=== PATIENT | male | born 1945 | race Caucasian/White ===

== ENCOUNTER 2020-11-06 23:00 | Emergency (ER) | payer MEDICARE, SELFPAY ==
[2020-11-06 23:04] VITALS: BP 149/72; PULSE 77; RESP 16; TEMP 36.2; O2SAT 100
--- NOTE | 2020-11-06 23:17 | ED.GENADULT ---
HPI - General Adult General Chief complaint: Unspecified Stated complaint: arm soreness at injection site Time Seen by Provider: 11/06/20 23:08 Source: patient Mode of arrival: ambulatory Limitations: no limitations History of Present Illness HPI narrative: Patient complaining of tenderness, itching and mild swelling of his right deltoid muscle after receiving pneumonia 23 shot earlier today. No significant redness. Denies any facial, lip, tongue or throat swelling. Denies any shortness of breath. Denies any fever or chills. Related Data Home Medications Medication Instructions Recorded Confirmed amlodipine 10 mg tablet 10 mg PO DAILY 06/10/19 aspirin 81 mg tablet,delayed 81 mg PO DAILY 06/10/19 release cholecalciferol (vitamin D3) 125 5,000 unit PO DAILY 06/10/19 mcg (5,000 unit) capsule meloxicam 7.5 mg tablet 7.5 mg PO DAILY 06/10/19 multivitamin 1 tablet PO DAILY 06/10/19 omeprazole 20 mg capsule,delayed 20 mg PO DAILY 06/10/19 release tamsulosin 0.4 mg capsule 0.4 mg PO DAILY 06/10/19 terazosin 10 mg capsule 10 mg PO DAILY 06/10/19 vitamin E (dl, acetate) 450 mg 1,000 unit PO DAILY 06/10/19 (1,000 unit) capsule oxybutynin chloride 5 mg tablet 5 mg PO DAILY tablet 12/16/19 rosuvastatin 10 mg tablet 10 mg PO DAILY 12/16/19 diphenhydramine HCl 50 mg capsule 50 mg PO .QHS PRN cap 06/20/20 Allergies Allergy/AdvReac Type Severity Reaction Status Date / Time celecoxib Allergy Unknown stomach Verified 06/20/20 07:58 cramping lisinopril Allergy Unknown eyes Verified 06/20/20 07:58 swelling & rash Review of Systems Review of Systems: All systems reviewed & are unremarkable except as noted in HPI and below PMFSH Past Medical History Medical History History of amputation of left great toe Family History Family History Father Carcinoma of colon Patient's father is , Onset Age: 57 Mother Hypertension Social History Social History Smoking packs per day: 2 Smoking cigarettes per day: 40.0 Years smoked: 50 Smoking pack-years: 100.00 Smoking status: Former smoker Tobacco type: cigarettes Second hand tobacco smoke exposure: No Smoking end date: 08/03/09 Alcohol intake: current Drinks per week: 6 Substance use: never Substance use type: does not use Gender identity (if verbalized by the patient): Male Exam Const: General: cooperative, healthy appearing, comfortable, no acute distress, well developed, alert and awake; No confusion Orientation/consciousness: oriented to person, oriented to place, oriented to time, patient oriented x3 and No confusion Limitations: no limitations HENMT: Head: normal to inspection, normocephalic and atraumatic Ears: hearing grossly normal bilaterally, TM normal on the right and TM normal on the left General nose exam: Normal external nose present, Normal nares present and No nasal discharge present Face and sinus: normal facial exam Mouth: Yes Normal oral and palatal mucosa present, Yes lip normal, Yes tongue normal and Yes oropharynx normal Throat: posterior oropharynx normal, tonsils normal and uvula midline Eyes: General: appearance normal, both eyes and all related structures Pupils: Equal, round and reactive pupils present EOM: EOMs intact bilaterally Neck: Neck: normal visual inspection, full ROM, no lymphadenopathy and no meningeal signs Chest: Chest palpation & inspection: normal inspection of the chest Resp: Effort & Inspection: normal respiratory effort, able to speak in complete sentences, no respiratory distress and not tachypneic Auscultation: clear to auscultation bilaterally, no crackles, no rales, no rhonchi and no wheezes Cardio: Rate: regular rate Rhythm: regular rhythm GI: Inspection: normal to inspection GI Pal
[2020-11-06 23:26] VITALS: BP 149/72; PULSE 72; RESP 16; TEMP 36.2; O2SAT 100
== END 2020-11-06 23:27 | disposition home or self-care (01) ==
PROVIDERS: Emergency Provider Emergency Medicine; PCP Family Medicine
DX: M79.601 Pain in right arm (principal); T50.B95A Adverse effect of other viral vaccines, initial encounter; Z87.891 Personal history of nicotine dependence
CPT/HCPCS: 99281

== ENCOUNTER 2021-08-07 14:36 | Outpatient (CLI) | payer MEDICARE, SELFPAY ==
--- NOTE | ~2021-08-07 | US_ITS ---
EXAMINATION: US venous doppler [facility] DATE: 08/07/2021 15:18 INDICATION: Lower limb swelling. TECHNIQUE: Grayscale ultrasound images without and with compression and Doppler ultrasound images of the bilateral lower extremity veins were obtained. COMPARISON: None. FINDINGS: The visualized portions of right common femoral vein, profunda (deep) femoral vein, femoral vein, pop liteal vein, peroneal veins, posterior tibial veins, and greater saphenous vein outflow are patent. The visualized portions of left common femoral vein, profunda femoral vein, femoral vein, popliteal v ein, peroneal veins, posterior tibial veins, and greater saphenous vein outflow are patent. IMPRESSION: 1. No deep venous thrombosis. Reviewed, dictated and finalized at location A. [facility]
== END 2021-08-07 14:37 | disposition home or self-care (01) ==
LOC: ANHIMG 14:41
PROVIDERS: PCP Family Medicine; Visit Provider Physician Assistant
DX: M79.89 Other specified soft tissue disorders (principal)
CPT/HCPCS: 93970

== ENCOUNTER 2021-12-14 23:39 | Emergency (ER) | payer MEDICARE, SELFPAY ==
[2021-12-14 23:51] VITALS: BP 180/80; PULSE 57; RESP 16; TEMP 36.4; O2SAT 100
[2021-12-15 01:44] VITALS: BP 183/88
--- NOTE | 2021-12-15 01:55 | ED.RECABL ---
HPI - Recheck/Abnormal Lab/Rx General Chief Complaint: Recheck/Abnormal Lab/Rx Stated Complaint: HTN, lightheaded Time Seen by Provider: 12/15/21 01:10 History of Present Illness HPI narrative: 76-year-old male with history of hypertension presents here after noticing that he had high blood pressure at home, noticed maybe some lightheadedness but denies any symptoms, no chest pain, no difficulty breathing, no nausea/vomiting or flank pain. He was at his urologist appointment when he was told that his blood pressures in the 160s over 90s and he has not had a chance to follow-up with his primary care doctor about this yet. Related Data Home Medications Medication Instructions Recorded Confirmed aspirin 81 mg tablet,delayed 81 mg PO DAILY 06/10/19 09/17/21 release cholecalciferol (vitamin D3) 125 5,000 unit PO DAILY 06/10/19 09/17/21 mcg (5,000 unit) capsule meloxicam 7.5 mg tablet 7.5 mg PO DAILY 06/10/19 09/17/21 multivitamin 1 tablet PO DAILY 06/10/19 09/17/21 omeprazole 20 mg capsule,delayed 20 mg PO DAILY 06/10/19 09/17/21 release tamsulosin 0.4 mg capsule 0.4 mg PO DAILY 06/10/19 09/17/21 terazosin 10 mg capsule 10 mg PO DAILY 06/10/19 09/17/21 vitamin E (dl, acetate) 450 mg 1,000 unit PO DAILY 06/10/19 09/17/21 (1,000 unit) capsule oxybutynin chloride 5 mg tablet 5 mg PO DAILY tablet 12/16/19 09/17/21 rosuvastatin 10 mg tablet 10 mg PO DAILY 12/16/19 09/17/21 diphenhydramine HCl 50 mg capsule 50 mg PO .QHS PRN cap 06/20/20 09/17/21 Allergies Allergy/AdvReac Type Severity Reaction Status Date / Time celecoxib Allergy Unknown stomach Verified 09/17/21 08:15 cramping lisinopril Allergy Unknown eyes Verified 09/17/21 08:15 swelling & rash Review of Systems Review of Systems: CONST: No fever. HEENT: No sore throat C/V: No chest pain RESP: No cough GI: No abdominal pain : No flank pain M/S: No joint pain. SKIN: No rash. NEURO: [No focal numbness or weakness] PSYCH: [No depression] [facility] Past Medical History Medical History (Updated 12/15/21 @ 08:56 by Kady Foote MD) History of amputation of left great toe Hypertension Family History Family History Father Carcinoma of colon Patient's father is , Onset Age: 57 Mother Hypertension Social History Social History Smoking packs per day: 2 Smoking cigarettes per day: 40.0 Years smoked: 50 Smoking pack-years: 100.00 Tobacco type: cigarettes Second hand tobacco smoke exposure: No Smoking end date: 08/03/09 Alcohol intake: current Drinks per week: 6 Substance use: never Substance use type: does not use Gender identity (if verbalized by the patient): Male Exam Narrative: EXAMINATION OF ORGAN SYSTEMS/BODY AREAS: Constitutional: Vital signs per nursing GENERAL:[No acute distress, non-toxic appearing.] HEAD: Normal with no signs of head trauma. EYES: EOMI, conjunctiva normal ENT: Hearing grossly intact LUNGS: Nonlabored breathing. HEART: [Regular rate and rhythm] ABD: [Soft], [nontender to palpation] EXT: Normal range of motion SKIN: [No rashes or lesions.] NEURO: [Alert and oriented x 3. Ambulating with normal gait, no sensory deficits, equal strength bilateral upper and lower extremities, cranial nerves II to XII intact.] PSYCH: Normal affect Course Course Emergency Course: 76-year-old male presents here with asymptomatic hypertension, he has a history of hypertension, vital signs notable for 180/80 blood pressure, which is not far off from the last blood pressure he had that was also high at the doctor's office, he is feeling well at this time, normal exam here without any neurologic or cardiopulmonary findings, he stable for discharge home with follow-up with his primary care doctor, return precautions provided, I did advise him to increase his dosage of blood pressure medication until he
== END 2021-12-15 02:15 | disposition home or self-care (01) ==
PROVIDERS: Emergency Provider Emergency Medicine; PCP Family Medicine
DX: I10 Essential (primary) hypertension (principal); Z79.82 Long term (current) use of aspirin; Z89.412 Acquired absence of left great toe; Z87.891 Personal history of nicotine dependence
CPT/HCPCS: 99281

== ENCOUNTER 2022-09-01 08:07 | Outpatient (CLI) | payer MEDICARE, SELFPAY ==
[2022-09-01 08:51] LABS: Anion Gap 6 mmol/L (8-16); Blood Urea Nitrogen 11 mg/dL (9-20); Calcium 8.7 mg/dL (8.4-10.2); Carbon Dioxide 28 mmol/L (22-30); Chloride 99 mmol/L (98-107); Estimated Glomerular Filt Rate 59; Glucose 92 mg/dL (65-110); Potassium 3.8 mmol/L (3.4-5.0); Sodium 133 mmol/L (137-145)
== END 2022-09-01 08:08 | disposition home or self-care (01) ==
LOC: ANHSURGERY 08:11
PROVIDERS: Anesthesiology; PCP Family Medicine; Visit Provider Podiatrist Foot & Ankle Surgery
DX: Z79.899 Other long term (current) drug therapy (principal); Z01.818 Encounter for other preprocedural examination
CPT/HCPCS: 36415; 80048

== ENCOUNTER 2022-09-05 01:42 | Day surgery (SDC) | payer MEDICARE, SELFPAY ==
[2022-08-28 13:46] VITALS: BMI 27.3
--- NOTE | 2022-08-28 13:56 | PC.NURSE ---
PRE-OP INSTRUCTIONS, PLEASE READ CAREFULLY Report to the Outpatient Waiting Room, entrance under the green pavilion located off [facility], at time _0930_ on date _09/05/22_. Planned Procedure Time: _1130_. Time changes happen often and if your time is changed the preop area will call you the afternoon before. - You and your visitor will be asked to self-screen and do not enter if you have any COVID symptoms. - Only one visitor is requested with a max of two and NO children visitors are allowed at this time. - The patient visitor may be requested to leave or wait in car when not with patient due to distancing restrictions. - A mask is optional within the hospital at this time. Patients may have clear liquids (water, carbonated beverages, clear teas, apple juice) until 3 hours prior to surgery (0830 AM) with a maximum of 20 ounces. - No food from midnight until time of surgery Take the following medications with a SIP of water the morning of surgery: _AMLODIPINE_ DO NOT STOP ANY OF YOUR OTHER PRESCRIPTION MEDICATIONS PRIOR TO SURGERY ?EXCEPT THE FOLLOWING Medications to discontinue - _ASPIRIN & MELOXICAM PER DR. XIONG'S INSTRUCTIONS__ Medications to discontinue per ANESTHESIA - _MULTIVITAMIN & SUPPLEMENTS 3 DAYS PRIOR TO SURGERY, Date to take last dose 09/01/22_ Please no make-up, nail romansh, hairspray, perfume, deodorant, or body powder the day of surgery. No jewelry (including any body piercings) or valuables the day of surgery, leave them at home. Please take a shower or bath the night before, or the morning of, surgery with an antibacterial soap. Wear comfortable, loose fitting clothing. - Jewelry must be removed prior to entering the operating room. Rings and piercings that are not removed may be cut off. - The hospital will not accept responsibility for valuables. - Please leave all valuables, including medications, at home the day of surgery. If you are going home after surgery, a licensed hazmat cdl driver must drive you home. - NO public transportation without another adult if you receive anesthesia. - We recommend that an adult stay with you for 24 hours following discharge. - We also recommend that you do not drive, make important decision, drink alcoholic beverages, or take any drugs that were not prescribed by your health care provider for at least 24 hours after your discharge time. Follow any additional instructions given to you from your surgeon. If you or anyone in your household have experienced Covid symptoms in the past week, please notify your surgeon or the nurse liaison at the phone number below for possible testing. Telephone instructions given to _PATIENT_and asked if any additional questions and then verbalized understanding. Patient advised to call surgeon office or pre surgery nurse liaison [phone] if any additional questions.
--- NOTE | ~2022-09-05 | XR_ITS ---
EXAMINATION: XR surgery orthopedic DATE: 09/05/2022 13:03 INDICATION: Left second digit partial amputation TECHNIQUE: Single dorsal plantar fluoroscopic image of the left forefoot was obtained during procedur e performed by Dr. Rashid. Radiologist was not present for the imaging or procedure. The amount of fluoroscopy time used during this procedure was 0.1 minutes. COMPARISON: 12/10/2018 FINDINGS: No interval change in a chronic amputation of the distal phalanx of the left great toe. Progressive a mputation previously of the mid to distal phalanges and bowels including the proximal phalanx of the left second toe. Small amount of expected soft tissue gas at the operative bed. 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 Remaining bones are unremarkable. IMPRESSION: 1. Fluoroscopy utilized during repeat, now complete amputation of the left second toe. See procedure note for further detail. Reviewed, dictated and finalized at location A. [facility] IMPRESSION: 1. Fluoroscopy utilized during repeat, now complete amputation of the left seco nd toe. See procedure note for further detail.
--- NOTE | 2022-09-05 07:18 | WPDHPUPDATE1 ---
History and Physical Update Update Date/Time: 09/05/22 07:18 History and Physical has been reviewed, including an updated exam of the patient. There are NO changes in the patient's condition. Risks, benefits, and alternatives have been discussed and questions answered. Patient agrees to proceed with procedure.
[2022-09-05] MEDS: LACTATED RINGERS 1,000 ML 30 ML IV CONT (10:30)
--- NOTE | 2022-09-05 10:56 | WPDANESEPPF ---
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 Patient Data Age: 77 Gender: M Height: 1.78 m Weight: 86.36 kg Allergies Allergy/AdvReac Type Severity Reaction Status Date / Time celecoxib Allergy Unknown stomach Verified 09/05/22 09:59 cramping lisinopril Allergy Unknown eyes Verified 09/05/22 09:59 swelling & rash Home Medications Medication Instructions Recorded Confirmed Type aspirin 81 mg tablet,delayed 81 mg PO DAILY 06/10/19 09/05/22 History release cholecalciferol (vitamin D3) 125 5,000 unit PO DAILY 06/10/19 09/05/22 History mcg (5,000 unit) capsule meloxicam 7.5 mg tablet 7.5 mg PO DAILY 06/10/19 09/05/22 History multivitamin 1 tablet PO DAILY 06/10/19 09/05/22 History omeprazole 20 mg capsule,delayed 20 mg PO DAILY 06/10/19 09/05/22 History release tamsulosin 0.4 mg capsule (Flomax) 0.4 mg PO DAILY 06/10/19 09/05/22 History terazosin 10 mg capsule 10 mg PO DAILY 06/10/19 08/28/22 History vitamin E (dl, acetate) 450 mg 1,000 unit PO DAILY 06/10/19 09/05/22 History (1,000 unit) capsule oxybutynin chloride 5 mg tablet 5 mg PO DAILY 12/16/19 09/05/22 History rosuvastatin 10 mg tablet 10 mg PO DAILY 12/16/19 09/05/22 History diphenhydramine HCl 50 mg capsule 50 mg PO .QHS PRN Sleep 06/20/20 09/05/22 History (Sleep Aid (diphenhydramine)) amlodipine 5 mg tablet 5 mg PO DAILY #90 tabs 01/15/22 09/05/22 Rx triamterene 37.5 See Rx Instructions .Route 05/16/22 09/05/22 Rx mg-hydrochlorothiazide 25 mg tablet .COMPLEX #90 tabs losartan 100 mg tablet 100 mg PO DAILY #30 tabs 08/13/22 09/05/22 Rx magnesium 200 mg tablet 400 mg PO QAM 08/28/22 08/28/22 History potassium 99 mg tablet 99 mg QAM 08/28/22 09/05/22 History vitamin B complex 1 tablet PO QAM 08/28/22 09/05/22 History Patient hx anesthesia problems: none Family hx anesthesia problems: none Results Review: All pre-operative results and documents have been reviewed as part of the pre-operative evaluation. [facility] Past Medical History Medical History History of amputation of left great toe Hypertension Family History Family History Father Carcinoma of colon Patient's father is , Onset Age: 57 Mother Hypertension Social History Social History Smoking packs per day: 2 Smoking cigarettes per day: 40.0 Years smoked: 50 Smoking pack-years: 100.00 Smoking status: Former smoker Tobacco type: cigarettes Second hand tobacco smoke exposure: No Smoking end date: 08/03/09 Alcohol intake: current Drinks per week: 4 Substance use: never Substance use type: does not use Living arrangements: alone Occupation/Education: retired Gender identity (if verbalized by the patient): Male Spiritual care concerns: No Anes - Eval Final PreProcedure Day of Procedure 09/05/22 10:56 Patient weight: overweight Heart: regular rate and rhythm Lungs: clear to auscultation Airway: Mallampati scale class II Neurological: alert and oriented Last oral intake: >/= 8 hours ASA classification: III Emergent: no Anesthetic plan: proceed Anesthesia type and monitoring: general GIVS and standard monitoring Results Review: All pre-operative results and documents have been reviewed as part of the pre-operative evaluation. Informed Consent: The patient's anesthetic plan and its attendant risks and benefits were discussed with the patient/family/POA. Questions were solicited and answers provided to the satisfaction of the patient/family/POA.
[2022-09-05 11:02] VITALS: BP 133/66; PULSE 65; RESP 16; TEMP 36.2; O2SAT 100
[2022-09-05] MEDS: ceFAZolin 2 GM/D5W 50 ML 2 GM/50 ML BAG IVPB (12:15)
[2022-09-05] MEDS: LIDOCAINE HCL 2% LOCAL INJ 20 ML VIAL 10 ML INFILTRATE (12:30)
[2022-09-05 13:00] VITALS: BP 115/74; PULSE 60; RESP 16; O2SAT 96
--- NOTE | 2022-09-05 13:17 | W.PM.PROC2 ---
Procedure Note - Detailed Date of Procedure 09/05/22 Pre-op Diagnosis Chronic ulceration 2nd digit left foot Post-op Diagnosis Same Procedure Performed Amputation left second digit Surgeon Carroll Rashid JR, DPM Anesthesia MAC and Local Indications Chronic ulcer left second digit not probing to bone Description of Procedure Under mild sedation, the patient was brought to the operating room, placed on the operating table in the supine position. A pneumatic ankle tourniquet was placed about the patient's ankle. Following IV sedation, I performed a proximal 2nd metatarsal Pierre Block. The foot was then scrubbed, prepped, and draped in the usual aseptic manner. An Esmarch bandage was then used to examine the patient's foot and pneumatic ankle tourniquet was then inflated. Surgery began in the following manner. Attention was directed to the dorsal aspect of the 2nd metatarsal phalangeal joint region where a racquet style incision was made about the base of the the 2nd digit. The incision was continued deep down through the subcutaneous tissues using sharp and blunt dissection. All bleeders were cauterized as necessary. A full-length periosteal incision was made overlying the 2nd metatarsal phalangeal joint, disarticulating the 2nd digit. The 2nd digit was removed from the operative site and placed on the back table and later sent for gross and histopathology. The remaining tissue was healthy and bleeding. The cartilage to the 2nd metatarsal head was normal and healthy. The wound site was then flushed with copious amounts of sterile saline.Next, the periosteum and capsular structures overlying the 2nd metatarsophalangeal joints were reapproximated with 3-0 Vicryl. Next, the skin was reapproximated and coapted utilizing 4-0 Prolene in simple interrupted suture fashion technique. Upon completion of the procedure, the incision was dressed with Adaptic, 4 x 4's, Kerlix, and Coban. The pneumatic ankle tourniquet was then deflated and a prompt hyperemic response noted to all digits of the foot. A surgical shoe was then applied. The patient did very well with the procedure and the anesthesia. The patient was transferred to the recovery room with vital signs stable and vascular status intact to all remaining toes of the affected foot. Following a period of postoperative monitoring, the patient will be discharged home on the following written and oral postoperative instructions: 1. Keep the dressing clean, dry, and intact. Use a cast protector bag with showers. 2. The patient should use a surgical shoe for ambulation postoperatively. 3. The patient should be on bedrest with bathroom privileges and elevate the affected foot when at rest. 4. The patient to contact Dr. Rashid for all postop care and if any problems arise. 5. Prescriptions were written for Percocet 5/325 dispensed 40 to be taken 1 p.o. q.4 to 6 hours as needed for severe pain. Estimated Blood Loss 1 Drains No Packing Yes (Proximal second digit was sent for gross and histopathology) Pathology None sent Complications No immediate complications Condition Stable Disposition Same day
[2022-09-05 13:30] VITALS: BP 137/72; PULSE 58
[2022-09-05 14:00] VITALS: BP 145/71; PULSE 54
--- NOTE | 2022-09-05 14:07 | SUR.PHASEII ---
1330- Pt had bleeding on dressing. Called Dr. Rashid to out pt recovery. Dressing assessed and reinforced. Pt denies pain.
== END 2022-09-05 14:36 | disposition home or self-care (01) ==
PROVIDERS: PCP Family Medicine; Visit Provider Podiatrist Foot & Ankle Surgery
PROC: (CPT 28820; principal; 2022-09-05 11:30)
DX: E11.621 Type 2 diabetes mellitus with foot ulcer (principal); L97.529 Non-pressure chronic ulcer of other part of left foot with unspecified severity; E11.40 Type 2 diabetes mellitus with diabetic neuropathy, unspecified; I10 Essential (primary) hypertension; N40.0 Benign prostatic hyperplasia without lower urinary tract symptoms; K21.9 Gastro-esophageal reflux disease without esophagitis; H26.9 Unspecified cataract; Z79.82 Long term (current) use of aspirin; Z87.891 Personal history of nicotine dependence
CPT/HCPCS: 28820; 88305; 88311; 99199; J0690; J2704; J3010; J7120

== ENCOUNTER 2022-12-22 15:23 | Outpatient (CLI) | payer MEDICARE, SELFPAY ==
[2022-12-22 15:55] LABS: Hemoglobin A1C 5.5 % (<5.7)
[2022-12-22 15:58] LABS: Alanine Aminotransferase 26 U/L (6-50); Albumin Level 4.5 g/dL (3.5-5.1); Alkaline Phosphatase 95 U/L (38-126); Anion Gap 7 mmol/L (8-16); Aspartate Amino Transferase 29 U/L (17-59); Bilirubin,Total 0.5 mg/dL (0.2-1.3); Blood Urea Nitrogen 19 mg/dL (9-20); Calcium 8.9 mg/dL (8.4-10.2); Carbon Dioxide 25 mmol/L (22-30); Chloride 108 mmol/L (98-107); Estimated Glomerular Filt Rate > 60; Glucose 98 mg/dL (65-110); Potassium 4.2 mmol/L (3.4-5.0); Sodium 140 mmol/L (137-145)
== END 2022-12-22 15:24 | disposition home or self-care (01) ==
PROVIDERS: PCP Family Medicine; Visit Provider Family Medicine
DX: R73.01 Impaired fasting glucose (principal); I10 Essential (primary) hypertension
CPT/HCPCS: 36415; 80053; 83036

== ENCOUNTER 2023-07-02 06:43 | Outpatient (CLI) | payer MEDICARE, SELFPAY ==
[2023-07-02 08:05] LABS: Hemoglobin 10.7 g/dL (14.0-18.0); Mean Corpuscular HGB Conc 32.4 g/dl (32-36); Mean Corpuscular Hemoglobin 30.7 pg (26-34); Mean Corpuscular Volume 94.6 fl (80-100); Mean Platelet Volume 9.4 fl (7.4-10.4); Platelet Count Result 178 k/mm3 (150-375); Red Blood Count 3.49 M/mm3 (4.6-6.20); Red Cell Distribution Width 12.6 % (11.5-14.5); White Blood Count 5.3 K/mm3 (4.5-10.0)
[2023-07-02 08:16] LABS: Hemoglobin A1C 5.3 % (<5.7)
[2023-07-02 08:17] LABS: Alanine Aminotransferase 25 U/L (6-50); Albumin Level 4.1 g/dL (3.5-5.1); Alkaline Phosphatase 68 U/L (38-126); Anion Gap 7 mmol/L (8-16); Aspartate Amino Transferase 29 U/L (17-59); Bilirubin,Total 0.6 mg/dL (0.2-1.3); Blood Urea Nitrogen 13 mg/dL (9-20); Carbon Dioxide 25 mmol/L (22-30); Chloride 105 mmol/L (98-107); Cholesterol 153 mg/dL (0-200); Estimated Glomerular Filt Rate 59; Glucose 113 mg/dL (65-110); HDL Direct 64 mg/dL; Sodium 137 mmol/L (137-145); Triglycerides 74 mg/dL (<150)
[2023-07-02 08:28] LABS: LDL Cholesterol Direct 69 mg/dL
== END 2023-07-02 06:44 | disposition home or self-care (01) ==
LOC: ANHLAB 06:45
PROVIDERS: PCP Family Medicine; Visit Provider Family Medicine
DX: E78.00 Pure hypercholesterolemia, unspecified (principal); R73.01 Impaired fasting glucose; I10 Essential (primary) hypertension
CPT/HCPCS: 36415; 80053; 80061; 83036; 84443; 85027

== ENCOUNTER 2023-09-02 01:15 | Day surgery (SDC) | payer MEDICARE, SELFPAY ==
[2023-08-06 09:07] VITALS: BMI 28.8
--- NOTE | 2023-08-31 12:58 | SUR.PREOP ---
Patient called regarding upcoming procedure. Pt updated on arrival date and time. All questions answered.
[2023-09-02 09:53] VITALS: BP 137/73; PULSE 76; RESP 20; TEMP 35.9; O2SAT 99
[2023-09-02] MEDS: LACTATED RINGERS 1,000 ML 150 ML IV CONT (10:02)
--- NOTE | 2023-09-02 10:34 | PM.HPGS ---
History of Present Illness History of Present Illness Consent: Risks, benefits, and alternatives have been discussed and questions answered. Patient agrees to proceed with procedure. Chief complaint: family hx of malignant neoplasm digestive organs Narrative: Gucci Patel is a 78 year old male with both parents had colon cancer, last colonoscopy 2018 Review of Systems Constitutional: Constitutional: Denies headache(s) and Denies weakness Eyes: Eyes: Denies blurry vision ENT: Reports Normal hearing present, Denies headache(s) and Denies neck pain Cardiovascular: Cardiovascular: Denies chest pain and Denies dyspnea Respiratory: Respiratory: Denies dyspnea Gastrointestinal: Gastrointestinal: Reports no additional gastrointestinal complaints Genitourinary: Genitourinary: Denies dysuria Musculoskeletal: Musculoskeletal: Denies neck pain Integumentary/Breasts: Skin/Breast: Denies dry skin Neurologic: Reports Normal hearing present, Denies headache(s) and Denies weakness Psychiatric: Psychiatric: Denies anxiety Endocrine: Endocrine: Denies change in body appearance Hematologic/Lymphatic: Hematologic/Lymphatic: Denies easy bleeding Allergic/Immunologic: Allergic/Immunologic: Denies urticaria 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 Family History Family History Father Carcinoma of colon Patient's father is , Onset Age: 57 Mother Hypertension Social History Social History Smoking packs per day: 2 Smoking cigarettes per day: 40.0 Years smoked: 50 Smoking pack-years: 100.00 Smoking status: Former smoker Tobacco type: cigarettes Second hand tobacco smoke exposure: No Smoking end date: 08/03/09 Alcohol intake: current Drinks per week: 4 Substance use: never Substance use type: does not use Living arrangements: alone Occupation/Education: retired Gender identity (if verbalized by the patient): Male Spiritual care concerns: No Meds Home Medications and Allergies Home Medications Medication Instructions Recorded Confirmed Type aspirin 81 mg tablet,delayed 81 mg PO DAILY 06/10/19 08/06/23 History release cholecalciferol (vitamin D3) 125 5,000 unit PO DAILY 06/10/19 09/02/23 History mcg (5,000 unit) capsule meloxicam 7.5 mg tablet 7.5 mg PO DAILY 06/10/19 09/02/23 History multivitamin 1 tablet PO DAILY 06/10/19 09/02/23 History omeprazole 20 mg capsule,delayed 20 mg PO DAILY 06/10/19 09/02/23 History release tamsulosin 0.4 mg capsule (Flomax) 0.4 mg PO DAILY 06/10/19 08/06/23 History terazosin 10 mg capsule 10 mg PO DAILY 06/10/19 09/02/23 History vitamin E (dl, acetate) 450 mg 1,000 unit PO DAILY 06/10/19 08/06/23 History (1,000 unit) capsule oxybutynin chloride 5 mg tablet 5 mg PO DAILY 12/16/19 09/02/23 History rosuvastatin 10 mg tablet 10 mg PO DAILY 12/16/19 08/06/23 History amlodipine 5 mg tablet 5 mg PO DAILY #90 tabs 01/15/22 09/02/23 Rx triamterene 37.5 See Rx Instructions .Route 05/16/22 08/06/23 Rx mg-hydrochlorothiazide 25 mg tablet .COMPLEX #90 tabs magnesium 200 mg tablet 250 mg PO QAM 08/28/22 09/02/23 History potassium 99 mg tablet 99 mg PO QAM 08/28/22 09/02/23 History vitamin B complex 1 tablet PO QAM 08/28/22 08/06/23 History losartan 100 mg tablet 100 mg PO DAILY #30 tabs 02/16/23 09/02/23 Rx Allergies Allergy/AdvReac Type Severity Reaction Status Date / Time celecoxib Allergy Unknown stomach Verified 09/02/23 09:48 cramping lisinopril Allergy Unknown eyes Verified 09/02/23 09:48 swelling & rash Vital Signs Vital Signs - 24 hr 09/02/23 09:53 Temperat
[2023-09-02 10:51] VITALS: BP 117/71; PULSE 60; RESP 22; O2SAT 99
[2023-09-02 11:01] VITALS: BP 136/78; PULSE 64; RESP 20; O2SAT 99
[2023-09-02 11:11] VITALS: BP 135/79; PULSE 60; RESP 20; O2SAT 100
--- NOTE | 2023-09-21 12:29 | WPDANESEPPF ---
Anes - Initial Pre Proc Eval Procedure: Operation Date: 09/02/23 11:00 Proposed Procedures p Screening Colonoscopy - Agus Ruffin MD Date/Time: 09/21/23 12:29 Surgeon: Agus Ruffin MD Pre Op Diagnosis: family hx of malignant neoplasm digestive organs Patient Data Age: 78 Gender: M Height: 1.78 m Weight: 91.1 kg Last Vital Signs Temp 96.7 F L 09/02/23 09:53 Pulse 60 09/02/23 11:11 Resp 20 09/02/23 11:11 BP 135/79 09/02/23 11:11 Pulse Ox 100 09/02/23 11:11 O2 Del Method Room Air 09/02/23 11:11 Allergies Allergy/AdvReac Type Severity Reaction Status Date / Time celecoxib Allergy Unknown stomach Verified 09/02/23 09:48 cramping lisinopril Allergy Unknown eyes Verified 09/02/23 09:48 swelling & rash Home Medications Medication Instructions Recorded Confirmed Type aspirin 81 mg tablet,delayed 81 mg PO DAILY 06/10/19 08/06/23 History release cholecalciferol (vitamin D3) 125 5,000 unit PO DAILY 06/10/19 09/02/23 History mcg (5,000 unit) capsule meloxicam 7.5 mg tablet 7.5 mg PO DAILY 06/10/19 09/02/23 History multivitamin 1 tablet PO DAILY 06/10/19 09/02/23 History omeprazole 20 mg capsule,delayed 20 mg PO DAILY 06/10/19 09/02/23 History release tamsulosin 0.4 mg capsule (Flomax) 0.4 mg PO DAILY 06/10/19 08/06/23 History terazosin 10 mg capsule 10 mg PO DAILY 06/10/19 09/02/23 History vitamin E (dl, acetate) 450 mg 1,000 unit PO DAILY 06/10/19 08/06/23 History (1,000 unit) capsule oxybutynin chloride 5 mg tablet 5 mg PO DAILY 12/16/19 09/02/23 History rosuvastatin 10 mg tablet 10 mg PO DAILY 12/16/19 08/06/23 History amlodipine 5 mg tablet 5 mg PO DAILY #90 tabs 01/15/22 09/02/23 Rx triamterene 37.5 See Rx Instructions .Route 05/16/22 08/06/23 Rx mg-hydrochlorothiazide 25 mg tablet .COMPLEX #90 tabs magnesium 200 mg tablet 250 mg PO QAM 08/28/22 09/02/23 History potassium 99 mg tablet 99 mg PO QAM 08/28/22 09/02/23 History vitamin B complex 1 tablet PO QAM 08/28/22 08/06/23 History losartan 100 mg tablet 100 mg PO DAILY #30 tabs 02/16/23 09/02/23 Rx Patient hx anesthesia problems: none Family hx anesthesia problems: none Results Review: All pre-operative results and documents have been reviewed as part of the pre-operative evaluation. 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 Family History Family History Father Carcinoma of colon Patient's father is , Onset Age: 57 Mother Hypertension Social History Social History Smoking packs per day: 2 Smoking cigarettes per day: 40.0 Years smoked: 50 Smoking pack-years: 100.00 Smoking status: Former smoker Tobacco type: cigarettes Second hand tobacco smoke exposure: No Smoking end date: 08/03/09 Alcohol intake: current Drinks per week: 4 Substance use: never Substance use type: does not use Living arrangements: alone Occupation/Education: retired Gender identity (if verbalized by the patient): Male Spiritual care concerns: No Anes - Eval Final PreProcedure Day of Procedure 09/21/23 12:29 Patient weight: normal Heart: regular rate and rhythm Lungs: clear to auscultation Airway: Mallampati scale class II Neurological: alert and oriented Last oral intake: >/= 8 hours ASA classification: III Emergent: no Anesthetic plan: proceed Anesthesia type and monitoring: general GIVS and standard monitoring Results Review: All pre-operative results and documents have been reviewed as part of the pre-operative evaluation. Informed Consent: The patient's anesthetic plan and its attendant ri
== END 2023-09-02 11:24 | disposition home or self-care (01) ==
PROVIDERS: PCP Family Medicine; Visit Provider Internal Medicine Gastroenterology
PROC: 0DJD8ZZ Inspection of Lower Intestinal Tract, Via Natural or Artificial Opening Endoscopic (ICD-10-PCS; CPT 45378; principal; 2023-09-02 11:00)
DX: Z12.11 Encounter for screening for malignant neoplasm of colon (principal); D17.5 Benign lipomatous neoplasm of intra-abdominal organs; K64.8 Other hemorrhoids; I10 Essential (primary) hypertension; Z79.82 Long term (current) use of aspirin; Z98.890 Other specified postprocedural states; Z87.891 Personal history of nicotine dependence; Z80.0 Family history of malignant neoplasm of digestive organs
CPT/HCPCS: G0105; J2704; J7120

== ENCOUNTER 2024-01-05 12:08 | Outpatient (CLI) | payer MEDICARE, SELFPAY ==
[2024-01-05 12:47] LABS: Hematocrit 33.5 % (42.0-52.0); Mean Corpuscular HGB Conc 32.8 g/dl (32-36); Mean Corpuscular Hemoglobin 31.3 pg (26-34); Mean Corpuscular Volume 95.2 fl (80-100); Mean Platelet Volume 9.5 fl (7.4-10.4); Platelet Count Result 163 k/mm3 (150-375); Red Blood Count 3.52 M/mm3 (4.6-6.20); Red Cell Distribution Width 13.1 % (11.5-14.5); White Blood Count 5.4 K/mm3 (4.5-10.0)
[2024-01-05 13:02] LABS: Alanine Aminotransferase 24 U/L (6-50); Albumin Level 4.3 g/dL (3.5-5.1); Alkaline Phosphatase 101 U/L (38-126); Anion Gap 6 mmol/L (4-12); Aspartate Amino Transferase 27 U/L (17-59); Bilirubin,Total 0.4 mg/dL (0.2-1.3); Blood Urea Nitrogen 17 mg/dL (9-20); Calcium 8.9 mg/dL (8.4-10.2); Carbon Dioxide 23 mmol/L (22-30); Chloride 110 mmol/L (98-107); Estimated Glomerular Filt Rate 59; Glucose 106 mg/dL (65-110); Potassium 4.2 mmol/L (3.4-5.0); Sodium 139 mmol/L (137-145)
[2024-01-05 13:13] LABS: Hemoglobin A1C 5.7 % (<5.7)
== END 2024-01-05 12:09 | disposition home or self-care (01) ==
LOC: ANHLAB 12:10
PROVIDERS: PCP Family Medicine; Visit Provider Family Medicine
DX: D64.9 Anemia, unspecified (principal); I10 Essential (primary) hypertension; R73.01 Impaired fasting glucose; E78.00 Pure hypercholesterolemia, unspecified
CPT/HCPCS: 36415; 80053; 83036; 85027

== ENCOUNTER 2025-02-08 07:47 | Outpatient (CLI) | payer MEDICARE, SELFPAY ==
--- OUTSIDE RECORDS SUMMARY | 2025-02-08 07:53 | XMS_ITS | Continuity of Care Document ---
Author Name [facility] Organization [facility] Care Team Providers Care Gallery Or Museum Curator Name Role Phone [facility] Unavailable Unavailable Problems Combined list of problems from Department of Defense and Veterans Affairs facilities. It does not include entries that were removed or entered in error. Problem Status Onset Date Problem Type Date of Resolution Comments Source Anemia ([facility] [id number]) Active Condition [facility] Benign Prostatic Hypertrophy With Outflow Obstruction ([facility] [id number]) Active Condition [facility] Diabetes Mellitus Type 2 ([facility] [id number]) Active Condition [facility] Diabetic Peripheral Neuropathy Associated With Type 2 Diabetes Mellitus ([facility] [id number]) Active Condition [facility] Eczema ([facility] [id number]) Active Condition [facility] Erectile dysfunction (SNOMED CT [id number]) Active Condition [facility] Exposure to potentially hazardous substance ([facility] [id number]) Active Condition Nov 17 4 Entered By: RENETTA NAQVI Comment: Entered automatically through [facility]ILL[facility] Problem List documentation program [facility] GERD - Gastro-Esophageal Reflux Disease ([facility] [id number]) Active Condition [facility] HTN-Hypertension ([facility] [id number]) Active Condition [facility] Hyperlipidemia Active Condition [facility] OA - Osteoarthritis ([facility] [id number]) Active Condition [facility] Past history of procedure Active Condition Nov 07, 2019 Entered By: MENA LEAVITT Comment: 2016 prostate biopsy (prostate cancer)Nov 07, 2019 Entered By: MENA LEAVITT Comment: 04/01/18 left great toe distal tip amputation (osteomyelitis)Nov 08, 2019 Entered By: MENA LEAVITT Comment: 02/28/19 left foot third and fourth digit flexor tenotomiesNov 08, 2019 Entered By: MENA LEAVITT Comment: 2019 left second toe amputation (overriding toe)Nov 08, 2019 Entered By: MENA LEAVITT Comment: 1980s tonsillectomy and adenoidectomyApr 2019 Entered By: MENA LEAVITT Comment: 2016 right eye cataract surgeryApr 2019 Entered By: MENA LEAVITT Comment: 2019 left eye cataract surgeryApr 2019 Entered By: MENA LEAVITT Comment: ~2007 benign left forearm cystectomies [facility] Prostate Cancer (SCT [id number]) Active Condition [facility] Tobacco dependence in remission Active Condition Nov 07, 2019 Entered By: MENA LEAVITT Comment: 06/03/[address]: stable middle lobe index nodule, lungrads category 2, repeat ldct in 1 yearOct 2019 Entered By: MENA LEAVITT Comment: 03/20/20 ldct: stable findings, repeat in 12 monthsOct 2019 Entered By: MENA LEAVITT Comment: 05/26/20 negative abdominal aortic aneurysm screening ultrasound [facility] Diagnosis: ICD-10-CM E11.9 Type 2 diabetes mellitus without complications Active Diagnosis [facility] Diagnosis: ICD-10-CM Z12.2 Encntr screen for malignant neoplasm of respiratory organs Active Diagnosis [facility] Diagnosis: ICD-10-CM Z13.5 Encounter for screening for eye and ear disorders Active Diagnosis [facility] Diagnosis: ICD-10-CM I10 Essential (primary) hypertension Active Diagnosis [facility] Medications Combined list of outpatient medications from Department of Defense and Veterans Affairs facilities.Medications provided include 1) outpatient medications from the last 15 months, and 2) patient-reported medications. Medication Details Route Status Patient Instructions Prescription Expires Prescription Number Last Dispense Date Ordering Provider Order Date Order Qty Source AMLODIPINE BESYLATE 5MG TAB TAKE ONE TABLET BY MOUTH ONCE A DAY FOR HIGH BLOOD PRESSURE ORAL ACTIVE 12/27/2025 [id number] ME JOSIE TTISA 2024 90 [facility] AMLODIPINE BESYLATE 5MG TAB TAKE ONE TABLET BY MOUTH ONCE A DAY FOR HIGH BLOOD PRESSURE ORAL DISCONT INUED 01/26/2025 [id number] 5 ME JOSIE TTISA 2023 90 [facility] CLOBETASOL PROPIONATE 0.05% CREAM,TOP APPLY SPARINGL Y TO AFFECTED AREA(S) ONCE A DAY NEEDED (EXTERNA L USE ONLY) USE FOR UP TO 10 DAYS FOR ECZEMA TREATMEN T AND THEN OFF FOR 10 DAYS REPEAT NEEDED TOPICA L ACTIVE 12/30/2025 [id number] [facility] CLOBETASOL PROPIONATE 0.05% CREAM,TOP APPLY SPARINGL Y TO AFFECTED AREA(S) ONCE A DAY NEEDED FOR RASH (EXTERNA L USE ONLY) USE FOR UP TO 10 DAYS FOR ECZEMA TREATMEN T AND THEN OFF FOR 10 DAYS REPEAT NEEDED TOPICA L DISCONT INUED 01/27/2025 [id number] 5 [place] TTISA [address] [facility] CLOBETASOL PROPIONATE 0.05% CREAM,TOP APPLY SPARINGL Y TO AFFECTED AREA(S) ONCE A DAY NEEDED (EXTERNA L USE ONLY) USE FOR UP TO 10 DAYS FOR ECZEMA TREATMEN T AND THEN OFF FOR 10 DAYS REPEAT NEEDED TOPICA L DISCONT INUED 03/31/2024 [id number] [place] TTISA 2022 30 [facility] HYDROCHLORO THIAZIDE 50MG/TRIAMT ERENE 75MG TAB TAKE ONE-HALF TABLET BY MOUTH EVERY MORNING FOR BLOOD PRESSURE ORAL ACTIVE 02/27/2025 [id number] 5 [place] TTISA 2024 45 [facility] HYDROCHLORO THIAZIDE 50MG/TRIAMT ERENE 75MG TAB TAKE ONE-HALF TABLET BY MOUTH EVERY MORNING FOR BLOOD PRESSURE ORAL DISCONT INUED 12/25/2024 [id number] 5 [place]O,[place] TTISA 2023 45 [facility] HYDROPHILIC (EQV EUCERIN) CREAM,TOP APPLY LIBERALL Y TO AFFECTED AREA(S) ONCE A DAY FOR DRY SKIN. (EXTERNA L USE ONLY) TOPICA L ACTIVE 12/30/2025 [id number] 5 GALINDO,ME TTISA 2024 454 [facility] HYDROPHILIC (EQV EUCERIN) CREAM,TOP APPLY LIBERALL Y TO AFFECTED AREA(S) ONCE A DAY FOR DRY SKIN. (EXTERNA L USE ONLY) TOPICA L DISCONT INUED 12/25/2024 [id number] 5 GALINDO,ME TTISA 2023 454 [facility] [place] POTASSIUM 100MG TAB TAKE ONE TABLET BY MOUTH ONCE A DAY ORAL ACTIVE 02/27/2025 [id number] 5 GALINDO,ME TTISA 2024 90 [facility] [place] POTASSIUM 100MG TAB TAKE ONE TABLET BY MOUTH ONCE A DAY ORAL DISCONT INUED 12/25/2024 [id number] 5 GALINDO,ME TTISA 2023 90 [facility] MELOXICAM 7.5MG TAB TAKE ONE TABLET BY MOUTH ONCE A DAY NEEDED FOR PAIN OR INFLAMMA TION TAKE WITH FOOD ORAL ACTIVE 03/19/2025 [id number] 5 GALINDO,ME TTISA 2024 90 [facility] MELOXICAM 7.5MG TAB TAKE ONE TABLET BY MOUTH ONCE A DAY NEEDED FOR PAIN OR INFLAMMA TION TAKE WITH FOOD ORAL DISCONT INUED 12/25/2024 [id number] 5 GALINDO,ME TTISA 2023 90 [facility] MULTIVITAMI N CAP/TAB TAKE BY MOUTH ONCE A DAY ORAL ACTIVE GODINEZ [address]24 [facility] OMEPRAZOLE 20MG CAP,EC TAKE ONE CAPSULE BY MOUTH EVERY MORNING BEFORE A MEAL TO LOWER STOMACH ACID. TAKE 30 MINUTES PRIOR TO FOOD. ORAL ACTIVE 03/05/2025 [id number] 5 GALINDO,ME TTISA 2024 90 [facility] OMEPRAZOLE 20MG CAP,EC TAKE ONE CAPSULE BY MOUTH EVERY MORNING BEFORE A MEAL TO LOWER STOMACH ACID. TAKE 30 MINUTES PRIOR TO FOOD. ORAL DISCONT INUED 10/08/2024 [id number] 5 GALINDO,KY TTISA 2023 90 [facility] OXYBUTYNIN CL 5MG TAB,SA TAKE ONE TABLET BY MOUTH ONCE A DAY FOR BLADDER. SWALLOW WHOLE, DO NOT CRUSH OR CHEW. ORAL ACTIVE 02/27/2025 [id number] 5 GALINDO,KY TTISA 2024 90 [facility] OXYBUTYNIN CL 5MG TAB,SA TAKE ONE TABLET BY MOUTH ONCE A DAY FOR BLADDER. SWALLOW WHOLE, DO NOT CRUSH OR CHEW. ORAL DISCONT INUED 12/25/2024 [id number] 5 GALINDO,KY TTISA 2023 90 [facility] ROSUVASTATI N CA 20MG TAB TAKE ONE-HALF TABLET BY MOUTH EVERY EVENING TO LOWER CHOLESTE ROL (REPORT ANY MUSCLE PAIN OR WEAKNESS ) ORAL ACTIVE 02/27/2025 [id number] 5 GALINDO,KY TTISA 2024 45 [facility] ROSUVASTATI N CA 20MG TAB TAKE ONE-HALF TABLET BY MOUTH EVERY EVENING TO LOWER CHOLESTE ROL (REPORT ANY MUSCLE PAIN OR WEAKNESS ) ORAL DISCONT INUED 12/25/2024 [id number] 5 GALINDO,KY TTISA 2023 45 [facility] SILDENAFIL CITRATE 100MG TAB TAKE ONE TABLET BY MOUTH EVERY WEEK NEEDED FOR ERECTILE DYSFUNCT ION (TAKE 60 MINUTES PRIOR TO SEXUAL ACTIVITY ) - LIMIT 4 DOSES PER 30 DAYS ORAL ACTIVE 12/30/2025 [id number] 5 GALINDO,KY TTISA 2024 12 [facility] SILDENAFIL CITRATE 100MG TAB TAKE ONE TABLET BY MOUTH EVERY WEEK NEEDED FOR ERECTILE DYSFUNCT ION (TAKE 60 MINUTES PRIOR TO SEXUAL ACTIVITY ) - LIMIT 4 DOSES PER 30 DAYS ORAL DISCONT INUED 12/25/2024 [id number] 5 GALINDO,KY TTISA 2023 12 [facility] SILDENAFIL CITRATE 100MG TAB TAKE ONE TABLET BY MOUTH EVERY WEEK NEEDED FOR ERECTILE DYSFUNCT ION (TAKE 60 MINUTES PRIOR TO SEXUAL ACTIVITY ) - LIMIT 4 DOSES PER 30 DAYS ORAL DISCONT INUED 12/27/2023 [id number] 4 JOSIEKY TTISA 2022 12 [facility] TAMSULOSIN HCL 0.4MG CAP TAKE ONE CAPSULE BY MOUTH EVERY EVENING APPROXIM ATELY 30 MINUTES AFTER THE SAME MEAL EACH DAY (FOR PROSTATE ) ORAL ACTIVE 06/04/2025 [id number] 5 JOSIE,KY TTISA 2023 90 [facility] TAMSULOSIN HCL 0.4MG CAP TAKE ONE CAPSULE BY MOUTH EVERY EVENING APPROXIM ATELY 30 MINUTES AFTER THE SAME MEAL EACH DAY (FOR PROSTATE ) ORAL DISCONT INUED 01/13/2025 [id number] JOSIEKY TTISA 2023 90 [facility] TAMSULOSIN HCL 0.4MG CAP TAKE ONE CAPSULE BY MOUTH EVERY EVENING APPROXIM ATELY 30 MINUTES AFTER THE SAME MEAL EACH DAY (FOR PROSTATE ) ORAL DISCONT INUED 01/13/2025 [id number] 4 JOSIEKY TTISA 2023 30 [facility] TAMSULOSIN HCL 0.4MG CAP TAKE ONE CAPSULE BY MOUTH EVERY EVENING APPROXIM ATELY 30 MINUTES AFTER THE SAME MEAL EACH DAY (FOR PROSTATE ) ORAL DISCONT INUED 12/27/2023 [id number] JOSIEKY TTISA 2022 30 [facility] TERAZOSIN HCL 10MG CAP TAKE ONE CAPSULE BY MOUTH AT BEDTIME FOR BLOOD PRESSURE OR PROSTATE . ORAL ACTIVE 02/27/2025 [id number] 5 JOSIEKY TTISA 2024 90 [facility] TERAZOSIN HCL 10MG CAP TAKE ONE CAPSULE BY MOUTH AT BEDTIME FOR BLOOD PRESSURE OR PROSTATE . ORAL DISCONT INUED 12/25/2024 [id number] 5 JOSIEKY TTISA 2023 90 [facility] VITAMIN B COMPLEX CAP TAKE 1 CAPSULE BY MOUTH EVERY MORNING FOR VITAMIN SUPPLEME NTATION. ORAL ACTIVE 02/27/2025 [id number] 5 ME JOSIE TTISA 2024 100 [facility] VITAMIN B COMPLEX CAP TAKE 1 CAPSULE BY MOUTH EVERY MORNING FOR VITAMIN SUPPLEME NTATION. ORAL DISCONT INUED 12/25/2024 [id number] 5 ME JOSIE TTISA 2023 100 [facility] Allergies, Adverse Reactions, Alerts Combined list of allergies from Department of Defense and [facility] Affairs facilities. It does not include entries that were removed or entered in error. Substance Category Reaction Severity Reaction type Status Date Reported Comments Source AMLODIPINE Propensity to adverse reactions to drug (finding) Swelling active 2 [facility] ATORVASTATIN Propensity to adverse reactions to drug (finding) Cramp active 0 [facility] CELEBREX Propensity to adverse reactions to drug (finding) Cramp active 7 [facility] LISINOPRIL Propensity to adverse reactions to drug (finding) Eruption active 7 [facility] Immunizations Combined list of available immunizations from the Department of [facility] and [facility] facilities. Immunization Series Date Given Administered By Site Reaction Lot Number CVX Code Drug Document Clerk Status Comments Source RSV, BIVALENT, PROTEIN SUBUNIT RSVPREF, DILUENT RECONSTITUTED , 0.5 ML, PF 2022 305 complet ed Completed Series, HISTORICA L INFORMATI ON - SOURCE UNSPECIFI ED, Lot#: na Mfr: [facility]RY[facility]LE [facility] RSV, RECOMBINANT, PROTEIN SUBUNIT RSVPREF, ADJUVANT RECONSTITUTED , 0.5 ML, PF 1 2022 303 complet ed HISTORICA L INFORMATI ON - FROM OTHER REGISTRY, [facility] COVID-19 (clickTRUE), MRNA, LNP-S, PF, ARNIE-SUCROSE, 30 MCG/0.3 ML (AGES 12+ YEARS) 1 2022 309 complet ed HISTORICA L INFORMATI ON - SOURCE UNSPECIFI ED, Lot#: na Mfr: clickTRUE, INC [facility] INFLUENZA VACCINE, QUADRIVALENT, ADJUVANTED 1 2022 205 complet ed HISTORICA L INFORMATI ON - FROM OTHER REGISTRY, [facility] INFLUENZA, UNSPECIFIED FORMULATION 2022 88 complet ed Completed Series, HISTORICA L INFORMATI ON - SOURCE UNSPECIFI ED, Lot#: na Mfr: NABI [facility] COVID-19 (PFIZER), MRNA, LNP-S, BIVALENT, PF, 30 MCG/0.3 ML DOSE 4 2021 300 complet ed HISTORICA L INFORMATI ON - FROM OTHER REGISTRY, [facility] INFLUENZA, HIGH-DOSE, QUADRIVALENT 1 2021 197 complet ed HISTORICA L INFORMATI ON - FROM OTHER REGISTRY, [facility] COVID-19 (MODERNA), MRNA, LNP-S, PF, 100 MCG/0.5ML DOSE OR 50 MCG/0.25ML DOSE 4 2021 207 complet ed MOD; [id number]; 2 [facility] PNEUMOCOCCAL CONJUGATE PCV20, POLYSACCHARID E [id number] CONJUGATE, ADJUVANT, PF 2021 216 complet ed [facility] INFLUENZA VACCINE, QUADRIVALENT, ADJUVANTED 2020 NONE 205 complet ed Completed Series, [facility] ZOSTER RECOMBINANT 2 2020 NONE 187 complet ed [facility] COVID-19 (PFIZER), MRNA, LNP-S, PF, 30 MCG/0.3 ML DOSE 3 2020 208 complet ed [facility] PNEUMOCOCCAL POLYSACCHARID E [id number] 2020 33 complet ed [facility] ZOSTER RECOMBINANT 1 2020 187 complet ed [facility] COVID-19 (PFIZER), MRNA, LNP-S, PF, 30 MCG/0.3 ML DOSE 2 2020 208 complet ed PFR; [id number]; 1 [facility] COVID-19 (PFIZER), MRNA, LNP-S, PF, 30 MCG/0.3 ML DOSE 1 2020 208 complet ed PFR; [id number]; [address] [facility] INFLUENZA, INJECTABLE, QUADRIVALENT, PRESERVATIVE FREE 1 2019 150 complet ed HISTORICA L INFORMATI ON - FROM OTHER REGISTRY, [facility] INFLU[facility], UNSPECIFIED FORMULATION 2019 88 complet ed [facility] INFLUENZA, INJECTABLE, QUADRIVALENT, PRESERVATIVE FREE 1 2018 150 complet ed HISTORICA L INFORMATI ON - FROM OTHER REGISTRY, [facility] N ZOSTER RECOMBINANT 2 2018 187 complet ed HISTORICA L INFORMATI ON - FROM OTHER REGISTRY, [facility] N ZOSTER RECOMBINANT 1 2018 187 complet ed HISTORICA L INFORMATI ON - FROM OTHER REGISTRY, [facility] N INFLUENZA, UNSPECIFIED FORMULATION 2017 88 complet ed [facility] INFLUENZA, HIGH DOSE SEASONAL 1 2017 135 complet ed HISTORICA L INFORMATI ON - FROM OTHER REGISTRY, [facility] N PNEUMOCOCCAL CONJUGATE PCV 13 2 2017 133 complet ed HISTORICA L INFORMATI ON - FROM OTHER REGISTRY, [facility] N TD(ADULT) UNSPECIFIED FORMULATION 2017 139 complet ed Left Deltoid [facility] N TDAP 2017 115 complet ed [facility] INFLUENZA, HIGH DOSE SEASONAL 1 2016 135 complet ed HISTORICA L INFORMATI ON - FROM OTHER REGISTRY, [facility] N INFLUENZA, UNSPECIFIED FORMULATION 2016 88 complet ed [facility] INFLUENZA, HIGH DOSE SEASONAL 1 2015 135 complet ed HISTORICA L INFORMATI ON - FROM OTHER REGISTRY, [facility] INFLUENZA, HIGH DOSE SEASONAL 1 2014 135 complet ed HISTORICA L INFORMATI ON - FROM OTHER REGISTRY, [facility] PNEUMOCOCCAL CONJUGATE PCV 13 1 2014 133 complet ed HISTORICA L INFORMATI ON - FROM OTHER REGISTRY, [facility] INFLUENZA, SEASONAL, INJECTABLE 1 2013 141 complet ed HISTORICA L INFORMATI ON - FROM OTHER REGISTRY, [facility] INFLUENZA, SEASONAL, INJECTABLE 1 2012 141 complet ed HISTORICA L INFORMATI ON - FROM OTHER REGISTRY, [facility] N Results Combined list of recent chemistry, hematology and other laboratory results from Department of Defense and Veterans Affairs, ranging from 15 months to all on record, depending upon the facility. Order Name Results Value Reference Range Date Interpretation Specimen Comments Source HGA1C HEMOGLOBIN A1C/HEMOGLO BIN.TOTAL IN BLOOD 5.9 4.0 - 6.0 12/23 Specimen Type: BLOOD No comment entered. Ordering Provider: RD NOGUEIRA RA Report Released Date/Time: December 23, 2024 11:01 AM Reporting Lab: [address] [address] Performing Lab: [address] [address] [facility] TSH (MA-PB) THYROTROPIN [UNITS/VOLU ME] IN SERUM OR PLASMA 1.159 u[IU]/ mL 0.47 - 5 12/23 Specimen Type: SERUM No comment entered. Ordering Provider: RD NOGUEIRA RA Report Released Date/Time: December 23, 2024 11:01 AM Reporting Lab: [address] [address] Performing Lab: [address] [address] [facility] VITAMIN D, 25-HYDROXY 25-HYDROXYV ITAMIN D3 [MASS/VOLUM E] IN SERUM OR PLASMA 81.6 ng/mL 30 - 96 12/23 Specimen Type: SERUM No comment entered. Ordering Provider: RD NOGUEIRA RA Report Released Date/Time: December 23, 2024 11:01 AM Reporting Lab: [address] [address] Performing Lab: [facility] [address] [facility] [address] [facility] LIPID PANEL (STL) CHOLESTEROL [MASS/VOLUM E] IN SERUM OR PLASMA 135 mg/dL 0 - 200 12/23 Specimen Type: PLASMA Comment: No hemolysis noted. Ordering Provider: RD NOGUEIRA RA Report Released Date/Time: December 23, 2024 11:01 AM Reporting Lab: [facility] [address] [facility] [address] Performing Lab: [facility] [address] [facility] [address] [facility] LIPID PANEL (STL) TRIGLYCERID E [MASS/VOLUM E] IN SERUM OR PLASMA 29 mg/dL 0 - 150 12/23 Specimen Type: PLASMA Comment: No hemolysis noted. Ordering Provider: RD NOGUEIRA RA Report Released Date/Time: December 23, 2024 11:01 AM Reporting Lab: [facility] [address] [facility] [address] Performing Lab: [place] [address] [facility] [address] [facility] LIPID PANEL (STL) CHOLESTEROL IN LDL [MASS/VOLUM E] IN SERUM OR PLASMA BY CALCULATION 47 mg/dL 12/23 Specimen Type: PLASMA Comment: No hemolysis noted. Ordering Provider: RD NOGUEIRA RA Report Released Date/Time: December 23, 2024 11:01 AM Reporting Lab: [facility] [address] [facility] [address] Performing Lab: [facility] [address] [facility] [address] [facility] LIPID PANEL (STL) CHOLESTEROL IN HDL [MASS/VOLUM E] IN SERUM OR PLASMA 82 mg/dL 40 12/23 Specimen Type: PLASMA Comment: No hemolysis noted. Ordering Provider: RD NOGUEIRA RA Report Released Date/Time: December 23, 2024 11:01 AM Reporting Lab: [facility] [address] [facility] [address] Performing Lab: [facility] [address] [facility] [address] [facility] B12 COBALAMIN (VITAMIN B12) [MASS/VOLUM E] IN SERUM OR PLASMA 646 pg/mL 213 - 816 12/23 Specimen Type: SERUM No comment entered. Ordering Provider: RD NOGUEIRA RA Report Released Date/Time: December 23, 2024 11:01 AM Reporting Lab: [facility] [address] [place] [address] Performing Lab: [address] [address] [facility] [place] METABOLIC PANEL CREATININE [MASS/VOLUM E] IN SERUM OR PLASMA 1.22 mg/dL 0.7 - 1.3 12/23 Specimen Type: PLASMA Comment: No hemolysis noted. Ordering Provider: RD NOGUEIRA RA Report Released Date/Time: December 23, 2024 11:01 AM Reporting Lab: [facility] [address] [place] [address] Performing Lab: [address] [address] [facility] METABOLIC PANEL UREA NITROGEN [MASS/VOLUM E] IN SERUM OR PLASMA 15.4 mg/dL 9.0 - 25.0 12/23 Specimen Type: PLASMA Comment: No hemolysis noted. Ordering Provider: RD NOGUEIRA RA Report Released Date/Time: December 23, 2024 11:01 AM Reporting Lab: [facility] [address] [place] [address] Performing Lab: [address] [address] [facility] [place] METABOLIC PANEL GLUCOSE [MASS/VOLUM E] IN SERUM OR PLASMA 98 mg/dL 72 - 99 12/23 Specimen Type: PLASMA Comment: No hemolysis noted. Ordering Provider: RD NOGUEIRA RA Report Released Date/Time: December 23, 2024 11:01 AM Reporting Lab: [facility] [address] [facility] [address] Performing Lab: [facility] [address] [facility] [address] [facility] [place] METABOLIC PANEL SODIUM [MOLES/VOLU ME] IN SERUM OR PLASMA 133 meq/L 136 - 145 12/23 L Specimen Type: PLASMA Comment: No hemolysis noted. Ordering Provider: RD NOGUEIRA RA Report Released Date/Time: December 23, 2024 11:01 AM Reporting Lab: [facility] [address] [facility] [address] Performing Lab: [facility] [address] [facility] [address] [facility] METABOLIC PANEL POTASSIUM [MOLES/VOLU ME] IN SERUM OR PLASMA 4.8 meq/L 3.5 - 5 12/23 Specimen Type: PLASMA Comment: No hemolysis noted. Ordering Provider: RD NOGUEIRA RA Report Released Date/Time: December 23, 2024 11:01 AM Reporting Lab: [facility] [address] [facility] [address] Performing Lab: [facility] [address] [facility] [address] [facility] METABOLIC PANEL CHLORIDE [MOLES/VOLU ME] IN SERUM OR PLASMA 101 meq/L 98 - 107 12/23 Specimen Type: PLASMA Comment: No hemolysis noted. Ordering Provider: RD NOGUEIRA RA Report Released Date/Time: December 23, 2024 11:01 AM Reporting Lab: [facility] [address] [facility] [address] Performing Lab: [facility] [address] [facility] [address] [facility] METABOLIC PANEL CARBON DIOXIDE, TOTAL [MOLES/VOLU ME] IN SERUM OR PLASMA 22 meq/L 22 - 31 12/23 Specimen Type: PLASMA Comment: No hemolysis noted. Ordering Provider: RD NOGUEIRA RA Report Released Date/Time: December 23, 2024 11:01 AM Reporting Lab: [facility] [address] [facility] [address] Performing Lab: [facility] [address] [facility] [address] [facility] METABOLIC PANEL CALCIUM [MASS/VOLUM E] IN SERUM OR PLASMA 9.4 mg/dL 8.4 - 10.4 12/23 Specimen Type: PLASMA Comment: No hemolysis noted. Ordering Provider: RD NOGUEIRA RA Report Released Date/Time: December 23, 2024 11:01 AM Reporting Lab: [facility] [address] [facility] [address] Performing Lab: [place] [address] [facility] [id number] [place] [address] COMPREHENS [place]ERK[place] METABOLIC PANEL PROTEIN [MASS/VOLUM E] IN SERUM OR PLASMA 7.3 g/dL 6 - 8.6 12/23 Specimen Type: PLASMA Comment: No hemolysis noted. Ordering Provider: RD NOGUEIRA RA Report Released Date/Time: December 23, 2024 11:01 AM Reporting Lab: [facility] [address] [facility] [address] Performing Lab: [facility] [address] [facility] [id number] [place] [address] COMPREHENS [place]ERKLEY METABOLIC PANEL ALBUMIN [MASS/VOLUM E] IN SERUM OR PLASMA 4.6 g/dL 3.4 - 5 12/23 Specimen Type: PLASMA Comment: No hemolysis noted. Ordering Provider: RD NOGUEIRA RA Report Released Date/Time: December 23, 2024 11:01 AM Reporting Lab: [facility] [address] [facility] [facility] [address] Performing Lab: [facility] [address] [place] [address] [facility] COMPREHENS [place] METABOLIC PANEL BILIRUBIN.T OTAL [MASS/VOLUM E] IN SERUM OR PLASMA 0.8 mg/dL 0.2 - 1.2 12/23 Specimen Type: PLASMA Comment: No hemolysis noted. Ordering Provider: RD NOGUEIRA RA Report Released Date/Time: December 23, 2024 11:01 AM Reporting Lab: [facility] [address] [facility] [address] Performing Lab: [facility] [address] [facility] [address] [facility] COMPREHENS [place] METABOLIC PANEL ALKALINE PHOSPHATASE [ENZYMATIC ACTIVITY/VO LUME] IN SERUM OR PLASMA 72 U/L 40 - 150 12/23 Specimen Type: PLASMA Comment: No hemolysis noted. Ordering Provider: RD NOGUEIRA RA Report Released Date/Time: December 23, 2024 11:01 AM Reporting Lab: [facility] [address] [facility] [address] Performing Lab: [facility] [address] [facility] [address] [facility] COMPREHENS [place] METABOLIC PANEL ASPARTATE AMINOTRANSF ERASE [ENZYMATIC ACTIVITY/VO LUME] IN SERUM OR PLASMA 46 U/L 5 - 34 12/23 H Specimen Type: PLASMA Comment: No hemolysis noted. Ordering Provider: RD NOGUEIRA RA Report Released Date/Time: December 23, 2024 11:01 AM Reporting Lab: [facility] [address] [facility] [address] Performing Lab: [facility] [address] [facility] [address] [facility] COMPREHENS [place] METABOLIC PANEL ALANINE AMINOTRANSF ERASE [ENZYMATIC ACTIVITY/VO LUME] IN SERUM OR PLASMA 22 U/L 8 - 40 12/23 Specimen Type: PLASMA Comment: No hemolysis noted. Ordering Provider: RD NOGUEIRA RA Report Released Date/Time: December 23, 2024 11:01 AM Reporting Lab: [facility] [address] [facility] [address] Performing Lab: [facility] [address] [facility] [address] [facility] COMPREHENS [place] METABOLIC PANEL GLOMERULAR FILTRATION RATE/1.73 SQ M.PREDICTED [VOLUME RATE/AREA] IN SERUM, PLASMA OR BLOOD BY CREATININE- BASED FORMULA (CKD-EPI 2020) 60.7 60 12/23 Specimen Type: PLASMA Comment: No hemolysis noted. Ordering Provider: RD NOGUEIRA RA Report Released Date/Time: December 23, 2024 11:01 AM Reporting Lab: [address] [address] Performing Lab: [address] [address] [facility] CBC LEUKOCYTES [#/VOLUME] IN BLOOD BY AUTOMATED COUNT 4.6 10*3/u L 3.6 - 11.2 12/23 Specimen Type: BLOOD No comment entered. Ordering Provider: RD NOGUEIRA RA Report Released Date/Time: December 23, 2024 11:01 AM Reporting Lab: [place] [address] [facility] [address] Performing Lab: [address] [address] [facility] CBC ERYTHROCYTE S [#/VOLUME] IN BLOOD BY AUTOMATED COUNT 3.92 10*6/u L 4.10 - 5.70 12/23 L Specimen Type: BLOOD No comment entered. Ordering Provider: RD NOGUEIRA RA Report Released Date/Time: December 23, 2024 11:01 AM Reporting Lab: [facility] [address] Performing Lab: [address] [address] [facility] CBC HEMOGLOBIN [MASS/VOLUM E] IN BLOOD 12.3 g/dL 13.1 - 16.8 12/23 L Specimen Type: BLOOD No comment entered. Ordering Provider: RD NOGUEIRA RA Report Released Date/Time: December 23, 2024 11:01 AM Reporting Lab: [address] [address] Performing Lab: [facility] [address] [place] [address] [facility] CBC HEMATOCRIT [VOLUME FRACTION] OF BLOOD 36.6 38.2 - 48.4 12/23 L Specimen Type: BLOOD No comment entered. Ordering Provider: RD NOGUEIRA RA Report Released Date/Time: December 23, 2024 11:01 AM Reporting Lab: [address] [address] Performing Lab: [address] [address] [facility] CBC MCV [ENTITIC VOLUME] BY AUTOMATED COUNT 93.4 fL 80.0 - 100.0 12/23 Specimen Type: BLOOD No comment entered. Ordering Provider: RD NOGUEIRA RA Report Released Date/Time: December 23, 2024 11:01 AM Reporting Lab: [address] [address] Performing Lab: [address] [address] [facility] CBC MCH [ENTITIC MASS] BY AUTOMATED COUNT 31.4 pg 27.0 - 34.0 12/23 Specimen Type: BLOOD No comment entered. Ordering Provider: RD NOGUEIRA RA Report Released Date/Time: December 23, 2024 11:01 AM Reporting Lab: [address] [address] Performing Lab: [address] [address] [facility] CBC MCHC [MASS/VOLUM E] BY AUTOMATED COUNT 33.6 g/dL 33.0 - 36.0 12/23 Specimen Type: BLOOD No comment entered. Ordering Provider: RD NOGUEIRA RA Report Released Date/Time: December 23, 2024 11:01 AM Reporting Lab: [address] [address] Performing Lab: [address] [place] [address] [facility] CBC PLATELETS [#/VOLUME] IN BLOOD BY AUTOMATED COUNT 221 10*3/u L 150 - 400 12/23 Specimen Type: BLOOD No comment entered. Ordering Provider: RD NOGUEIRA RA Report Released Date/Time: December 23, 2024 11:01 AM Reporting Lab: [address] [address] Performing Lab: [address] [address] [facility] CBC PLATELET MEAN VOLUME [ENTITIC VOLUME] IN BLOOD BY AUTOMATED COUNT 9.5 fL 7.5 - 11.2 12/23 Specimen Type: BLOOD No comment entered. Ordering Provider: RD NOGUEIRA RA Report Released Date/Time: December 23, 2024 11:01 AM Reporting Lab: [address] [address] Performing Lab: [address] [address] [facility] CBC ERYTHROCYTE DISTRIBUTIO N WIDTH [RATIO] BY AUTOMATED COUNT 12.6 11.8 - 15.1 12/23 Specimen Type: BLOOD No comment entered. Ordering Provider: RD NOGUEIRA RA Report Released Date/Time: December 23, 2024 11:01 AM Reporting Lab: [address] [address] Performing Lab: [address] [address] [facility] CBC LYMPHOCYTES /100 LEUKOCYTES IN BLOOD BY AUTOMATED COUNT 14 12/23 Specimen Type: BLOOD No comment entered. Ordering Provider: RD NOGUEIRA RA Report Released Date/Time: December 23, 2024 11:01 AM Reporting Lab: [address] [address] Performing Lab: [place] [address] [facility] [address] [facility] CBC MONOCYTES/1 00 LEUKOCYTES IN BLOOD BY AUTOMATED COUNT 10 12/23 Specimen Type: BLOOD No comment entered. Ordering Provider: RD NOGUEIRA RA Report Released Date/Time: December 23, 2024 11:01 AM Reporting Lab: [facility] [address] [facility] [address] Performing Lab: [facility] [address] [facility] [address] [facility] CBC NEUTROPHILS /100 LEUKOCYTES IN BLOOD BY AUTOMATED COUNT 72 12/23 Specimen Type: BLOOD No comment entered. Ordering Provider: RD NOGUEIRA RA Report Released Date/Time: December 23, 2024 11:01 AM Reporting Lab: [facility] [address] [facility] [address] Performing Lab: [facility] [address] [facility] [address] [place] [address] CBC EOSINOPHILS /100 LEUKOCYTES IN BLOOD BY AUTOMATED COUNT 3 12/23 Specimen Type: BLOOD No comment entered. Ordering Provider: RD NOGUEIRA RA Report Released Date/Time: December 23, 2024 11:01 AM Reporting Lab: [facility] [address] [facility] [address] Performing Lab: [facility] [address] [place] [address] [facility] CBC BASOPHILS/1 00 LEUKOCYTES IN BLOOD BY AUTOMATED COUNT 1 12/23 Specimen Type: BLOOD No comment entered. Ordering Provider: RD NOGUEIRA RA Report Released Date/Time: December 23, 2024 11:01 AM Reporting Lab: [facility] [address] [facility] [address] Performing Lab: [facility] [address] [place] [address] [facility] CBC LYMPHOCYTES [#/VOLUME] IN BLOOD BY AUTOMATED COUNT 0.67 10*3/u L 0.77 - 4.50 12/23 L Specimen Type: BLOOD No comment entered. Ordering Provider: RD NOGUEIRA RA Report Released Date/Time: December 23, 2024 11:01 AM Reporting Lab: [facility] [address] [facility] [address] Performing Lab: [facility] [address] [place] [address] [facility] CBC MONOCYTES [#/VOLUME] IN BLOOD BY AUTOMATED COUNT 0.44 10*3/u L 0.19 - 0.80 12/23 Specimen Type: BLOOD No comment entered. Ordering Provider: RD NOGUEIRA RA Report Released Date/Time: December 23, 2024 11:01 AM Reporting Lab: [facility] [address] [place] [address] Performing Lab: [address] [phone] [place] [address] CBC NEUTROPHILS [#/VOLUME] IN BLOOD BY AUTOMATED COUNT 3.35 10*3/u L 2.10 - 8.00 12/23 Specimen Type: BLOOD No comment entered. Ordering Provider: RD NOGUEIRA RA Report Released Date/Time: December 23, 2024 11:01 AM Reporting Lab: [facility] [address] Performing Lab: [address] [address] [facility] CBC EOSINOPHILS [#/VOLUME] IN BLOOD BY AUTOMATED COUNT 0.13 10*3/u L 0.00 - 0.60 12/23 Specimen Type: BLOOD No comment entered. Ordering Provider: RD NOGUEIRA RA Report Released Date/Time: December 23, 2024 11:01 AM Reporting Lab: [facility] [address] Performing Lab: [facility] [address] [place] [address] [facility] CBC BASOPHILS [#/VOLUME] IN BLOOD BY AUTOMATED COUNT 0.03 10*3/u L 0.00 - 0.20 12/23 Specimen Type: BLOOD No comment entered. Ordering Provider: RD NOGUEIRA RA Report Released Date/Time: December 23, 2024 11:01 AM Reporting Lab: [facility] [address] [facility] [address] Performing Lab: [facility] [address] [facility] [address] [facility] GLUCOSE,BL OOD-poct (STL) GLUCOSE [MASS/VOLUM E] IN BLOOD BY AUTOMATED TEST STRIP 110 mg/dL 72 - 99 12/23 H Specimen Type: BLOOD Comment: Test Performed by: [id number] Meter #: [id number] Ordering Provider: RD NOGUEIRA RA Report Released Date/Time: December 23, 2024 03:57 PM Reporting Lab: [facility] [facility] [address] Performing Lab: [facility] [address] [facility] [address] [facility] GLUCOSE,BL OOD-poct (STL) GLUCOSE [MASS/VOLUM E] IN BLOOD BY AUTOMATED TEST STRIP 106 mg/dL 72 - 99 12/24 H Specimen Type: BLOOD Comment: Test Performed by: [id number] Meter #: [id number] Ordering Provider: MET DANIEL GALINDO Report Released Date/Time: December 25, 2023 05:24 PM Reporting Lab: [facility] [address] [facility] [address] Performing Lab: [place] [id number] [facility] [address] [facility] Vital Signs Combined list of inpatient and outpatient Vital Signs from Department of Defense and Veterans Affairs, ranging from 12 months to all on record, depending upon the facility. Vital Sign Value Date Comments Source SYSTOLIC BLOOD PRESSURE 120 12/23/2024 10:22:02 [facility] DIASTOLIC BLOOD PRESSURE 65 12/23/2024 10:22:02 [facility] PULSE OXIMETRY 98 12/23/2024 10:22:02 [facility] WEIGHT 206 12/23/2024 10:22:02 [facility] BMI 30 kg/m2 12/23/2024 10:22:02 [facility] PAIN 0 12/23/2024 10:22:02 [facility] HEIGHT 70 12/23/2024 10:22:02 [facility] TEMPERATURE 97.6 12/23/2024 10:22:02 [facility] PULSE 59 12/23/2024 10:22:02 [facility] RESPIRATION 18 12/23/2024 10:22:02 [facility] Encounters Combined list of: 1) Encounters from Department of Veterans Affairs facilities going backup to the last 18 months, not all [place] inpatient encounters are included; 2) Encounters from the Department of [facility] facilities going backup to 280 months. Location Location Details Encounter Type Encounter Number Reason For Visit Attending Provider ADM Date DC Date Status Disposition Source [facility] Outpatient Encounter [id number] 11/01 [facility] N [facility] Outpatient Encounter [id number] 11[facility] Outpatient Encounter [id number] NAZIA HUTSON M 12/23 [facility] Outpatient Encounter [id number] 12/24 [facility] FUNDUS PHOTOGRAPH Y W/I&R [id number] Diagnos is: ICD-10- CM Z13.5 Encount er for screeni ng for eye and ear disorde MIGUEL Marroquin 12/24 [facility] OFFICE O/P EST MOD 30 MIN [id number] Diagnos is: ICD-10- CM I10 Essenti al (primar y) hyperte nsion JOSIE,MET DANIEL 12/24 [facility] IMG RTA DETC/MNTR DS PHY/QHP [id number] Diagnos is: ICD-10- CM Z13.5 Encount er for screeni ng for eye and ear disorde TRACIE Lockhart 12/24 [facility] Outpatient Encounter [id number] 02/12 [facility] Outpatient Encounter [id number] Diagnos is: ICD-10- CM Z12.2 Encntr screen for maligna nt neoplas m of respira tory organs OHLMS,EDIE Y 02/16 [facility] Outpatient Encounter [id number] MET JOSIE DANIEL 03/15 [facility] Outpatient Encounter [id number] 03/18 [facility] Outpatient Encounter [id number] 03/29 [facility] Outpatient Encounter [id number] 07/19 [facility] Outpatient Encounter [id number] 11/01 [facility] FEE [id number] Diagnos is: ICD-10- CM E11.9 Type 2 diabete s mellitu s without complic ations RD NOGUEIRA RA M 12/23 [facility] SYNCH AUDIO-VIDE O EST MOD 30 [id number] Diagnos is: ICD-10- CM E11.9 Type 2 diabete s mellitu s without complic ations MIRLANDEDED RA M 12/23 [facility] Social History Combined list of available smoking, tobacco, and other social history from Department of Defense and Veterans Affairs facilities. Social History Type Response Date Comment Sourc e Tobacco smoking status NHIS VA-TOBACCO NEVER USED OTHER TYPE 12/23/2024 [facility] History of tobacco use VA-TOBACCO USE FORMER CIGARETTES 12/23/2024 [facility] History of tobacco use VA-TOBACCO FORMER USER 12/25/2023 [facility] History of tobacco use VA-TOBACCO FORMER USER 12/25/2022 [facility] History of tobacco use HI-TOBACCO QUIT 15 YRS OR MORE 12/20/2021 [facility] History of tobacco use VA-TOBACCO FORMER USER 11/01/2020 [facility] History of tobacco use HI-TOBACCO QUIT 5 TO < 15 YRS 11/04/2019 [facility] History of tobacco use VA-TOBACCO FORMER USER 11/17/2017 [facility] History of tobacco use LIFETIME NON-USER OF TOBACCO 04/02/2017 [facility] Plan of Care List of future care activities from Department of [facility] Affairs facilities. Additional future care activities may be listed in the Assessment and Plan section. Date/Time Care Activity Care Activity Detail Facili ty 02/18/2025 AMBULATORY - NONE AMBULATORY - NONE [facility]
--- OUTSIDE RECORDS SUMMARY | 2025-02-08 07:53 | XMS_ITS | Referral Summary ---
Author Organization [address] Address [address] [place] [address] Care Team Providers Care Gravure Press Set Up Operator Name Role Phone Chandana Licea MD, Avni Corrales Primary Care Provider Encounters Date Type Department Care Team Description 01/23/2025 10:15 AM CDT Office Visit [facility] at [address] [address] Jadyn Bey, CASSI Cough productive of yellow sputum (Primary Dx) from Last 3 Months Allergies Active Allergy Reactions Criticality Noted Date Comments Celecoxib Lisinopril Pravastatin Unknown 08/18/2017 Medications amLODIPine (NORVASC) 10 mg tablet Take 1 tablet (10 mg total) by mouth daily Active aspirin 81 mg enteric coated tablet Take 1 tablet (81 mg total) by mouth daily Active ergocalciferol (VITAMIN D) 50,000 unit capsule Take 1 capsule (50,000 Units total) by mouth Active finasteride (PROSCAR) 5 mg tablet Take 1 tablet (5 mg total) by mouth daily Active meloxicam (MOBIC) 7.5 mg tablet Take 1 tablet (7.5 mg total) by mouth daily Active mirabegron ER (MYRBETRIQ) 25 mg tablet extended release 24 hr Take by mouth Active omeprazole 20 mg tablet,delayed release (DR/EC) Take by mouth Active tamsulosin (FLOMAX) 0.4 mg extended release capsule Take 1 capsule (0.4 mg total) by mouth daily Active terazosin (HYTRIN) 10 mg capsule Take 1 capsule (10 mg total) by mouth nightly Active amoxicillin (AMOXIL) 500 mg tablet/capsule Take 1 tablet/capsu le (500 mg total) by mouth 2 (two) times a day for 7 days 14 tablet/capsul e 01/23/2025 01/31/20 25 Active Problems No known active problems Social History Tobacco Use Types Packs/Day Years Used Date Smoking Tobacco: Never Assessed Sex and Gender Information Value Date Recorded Sex Assigned at Not on file 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 Gender Identity Not on file Sexual Orientation Not on file Last Filed Vital Signs Vital Sign Reading Time Taken Comments Blood Pressure 134/74 01/23/2025 10:16 AM CDT Pulse 86 01/23/2025 10:16 AM CDT Temperature 36.7 C (98.1 F) 01/23/2025 10:16 AM CDT Respiratory Rate 20 01/23/2025 10:16 AM CDT Oxygen Saturation 97% 01/23/2025 10:16 AM CDT Inhaled Oxygen Concentration - - Weight 90.7 kg (200 lb) 01/23/2025 10:16 AM CDT Height - - Body Mass Index - - Plan of Treatment Not on file Insurance MEDICARE [facility] MEDICARE SUPPLEMENT Care Teams Gravure Press Set Up Operator Relationship Specialty Start Date End Date Avni Ellington Jr., MD [address] [place] [address] PCP - General 12/01/12
--- OUTSIDE RECORDS SUMMARY | 2025-02-08 07:53 | XMS_ITS | Clinical Summary ---
Author Organization [facility] Address [address] [place], [address] [address] Phone Care Team Providers Care Youth Director Name Role Phone Gagandeep Delaney MD Primary Care Provider Pastor Menard DO Unavailable [phone] Allergies Active Allergy Reactions Criticality Noted Date Comments Celecoxib Unknown 08/18/2017 Pravastatin Unknown 08/18/2017 Medications polyethylene glycol (MIRALAX) Powder Use entire 255g bottle with 64oz of clear liquid as directed for colonoscopy prep. 255 g 7 Active Multiple Vitamins-Minera ls (MULTIVITAMIN PO) Take by mouth. Activ e ergocalciferol (VITAMIN D) 05662 UNIT Capsule Take 50,000 Units by mouth. Active vitamin E (TOCOPHEROL) 1000 UNIT Capsule Take 1,000 Units by mouth daily. Active finasteride (PROSCAR) 5 MG Tablet Take 5 mg by mouth daily. Active meloxicam (MOBIC) 7.5 MG Tablet Take 7.5 mg by mouth daily. Active amLODIPine (NORVASC) 10 MG Tablet Take 10 mg by mouth daily. Active Omeprazole 20 MG Tablet Delayed Response Take by mouth. Activ e terazosin (HYTRIN) 10 MG Capsule Take 10 mg by mouth nightly. Active tamsulosin (FLOMAX) 0.4 MG Capsule Take 0.4 mg by mouth daily. Active Mirabegron ER (MYRBETRIQ) 25 MG TABLET SR 24 HR Take by mouth. Activ e aspirin EC 81 MG Tablet Delayed Response Take 81 mg by mouth daily. Active Immunizations Immunization Administration Dates Next Due Covid-19, Mrna, Lnp-s, Pf, 30 Mcg/0.3 Ml Dose (P fizer) 09/15/2020,08/25/2020 Family History Medical History Relation Name Comments Colon Cancer Father Colon Cancer Mother Relation Name Status Comments Father Mother Social History Tobacco Use Types Packs/Day Years Used Date Smoking Tobacco: Former Smokeless Tobacco: Never Alcohol Use Standard Drinks/Week Comments Yes 0 (1 standard drink = 0.6 oz pur e alcohol) social Sex and Gender Information Value Date Recorded Sex Assigned at Not on file Legal Sex Male 9:52 PM CDT Gender Identity Not on file Sexual Orientation Not on file Plan of Treatment Health Maintenance Due Date Last Done Comments Hepatitis C Virus (HCV) Screening 1945 TdaP Immunization 1945 Pneumococcal Immunization (50+ years) (2 of 2 - PPSV23) 04/07/2019 04/07/2018, 04/22/2015 Respiratory Syncytial Virus (RSV) Immunization (Adult) (1 - 1-dose 75+ series) 2021 SARS-COV-2 Immunization ( season) 2024 04/29/2021, 09/15/2020, 08/25/2020 Influenza Immunization (#1) 04/03/202503/04, 05/12/2019, 04/07/2018, Additional history exists Colonoscopy Discontinued 08/06/2017 Colorectal Cancer Screening Discontinued Pneumococcal Immunization Combined Discontinued 04/07/2018, 04/22/2015 Zoster Immunization Completed 12/02/2018, 9 Cologuard Discontinued Hepatitis B Immunization Aged Out No longer eligible based on patient's age to complete this topic Human Papillomavirus (HPV) Immunization Aged Out No longer eligible based on patient's age to complete this topic Immunochemical Fecal Occult Blood Discontinued Meningococcal Immunization (ACWY) Aged Out No longer eligible based on patient's age to complete this topic Rotavirus Immunization Aged Out No lo nger eligible based on patient's age to complete this topic Procedures Procedure Name Priority Date/Time Associated Diagnosis Comments COLONOSCOPY Routine 08/06/2017 from Last 3 Months or Most Recently Relevant to Health Maintenance Results * HM COLONOSCOPY (08/06/2017) us Pastor T Klucka DO PROCEDURE/MINOR SURGICAL ORDERA BLES Final Result from Last 3 Months or Most Recently Relevant to Health Maintenance Insurance MEDICARE [employer] Care Teams Youth Director Relationship Specialty Start Date End Date Gagandeep Delaney MD [address] [place] [address] PCP - General Family Medicine 08/10/17 Pastor Menard DO [address] [place] [address] Gastroenterology 08/10/17
--- OUTSIDE RECORDS SUMMARY | 2025-02-08 07:53 | XMS_ITS | Clinical Summary ---
Author Organization [address] Address [address] [place] [id number] Care Team Providers Care Well Point Pumping Supervisor Name Role Phone Chandana Licea MD, Avni Corrales Primary Care Provider Allergies Active Allergy Reactions Criticality Noted Date [...] 25 Active Problems No known active problems Encounters Date Type Department Care Team Description 01/23/2025 10:15 AM CDT Office Visit [facility] Care at [address] [id number] Jadyn Bey, AIR INTELLIGENCE OFFICER Cough productive of yellow sputum (Primary Dx) from Last 3 Months Social History Tobacco Use Types Packs/Day Years Used Date Smoking Tobacco: Never Assessed Sex and Gender Information Value Date Recorded Sex Assigned at Not on file 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 Gender Identity Not on file Sexual Orientation Not on file Obstetrics History Last Filed Vital Signs Vital Sign Reading [...] Mass Index - - Plan of Treatment Health Maintenance Due Date Last Done Comments Depression Screening 1945 Fall Risk Assessment 1945 Hepatitis C Screening 1945 Hepatitis B Screening 1964 Well Visit 65+ 2011 DTaP/Tdap/Td Vaccine (1 - Tdap) 11/13/2017 8 Covid-19 Vaccine (2023- 5 season) 2024 04/01/2024, 04/29/2023, 06/09/2022, Additional history exists Zoster Vaccine Completed 05/06/2021, 040 01/2021, 12/02/2018, Additional history exists Pneumococcal vaccine 65+ Completed 022, 11/06/2020, 04/07/2018, Additional history exists Influenza Vaccine Completed 04/01/2024, , 04/28/2022, Additional history exists Insurance MEDICARE [facility] MEDICARE SUPPLEMENT Care Teams Well Point Pumping Supervisor Relationship Specialty Start Date End Date Avni Ellington Jr., MD [facility] [place] [address] PCP - General 12/01/12
--- OUTSIDE RECORDS SUMMARY | 2025-02-08 07:53 | XMS_ITS | Encounter Summary ---
Author Name [facility] Organization [facility] Address [address] [place] [address] Care Team Providers Care Managed Security Sales Consultant Name Role Phone APARNA NOGUEIRA Primary Care Provider Unavailabl e Insurance Providers: All historical and current Section Date Range: From patient's date of to the date document was created. This section includes the names of all active insurance providers for the patient. Insurance Provider Type of Coverage Plan Name Start of Policy Coverage End of Policy Coverage Group Number Member ID Insurance Provider's Telephone Number Policy Webster's Name Patient's Relationship to Policy Webster RIANA FUCHS [place] SUPP[place] [place] MED[employer] ARE SUPPL EMENT Feb 06, 2016 [id number] [phone] CHRISTINA NERI PATIENT MEDICARE (WNR) MEDICARE (M) PART A Apr 03, 2011 PART A [id number] [phone] CHRISTINA NERI PATIENT MEDICARE (WNR) MEDICARE (M) PART B Apr 03, 2011 PART B [id number] CHRISTINA NERI PATIENT MEDICARE (WNR) MEDICARE (M) RR PART B Apr 03, 2011 RR PART B [id number] [phone] CHRISTINA NERI PATIENT MEDICARE (WNR) MEDICARE (M) RR PART A Apr 03, 2011 RR PART A [id number] [phone] NERI, CHRISTINA PATIENT Selected Encounter This section includes the information on record at [place] for the Encounter. Date/Time Encounter Type Encounter Description Reason Provider Source December 23, 2024 10:01 AM SYNCH AUDIO-VIDEO EST MOD 30 PRIMARY CARE/MEDICINE ICD-10-CM E11.9 Type 2 diabetes mellitus without complications M[facility]ANDEAPARNA [facility] Encounter Template Text not used by [place] Assessments - Encounter Diagnoses This section includes the primary and secondary diagnoses documented for the Encounter. Date/Time Primary/Secondary Diagnosis Diagnosis Name Provider Source December 26, 2024 08:57 PM PRIMARY Type 2 diabetes mellitus without complications [facility] December 26, 2024 08:57 PM SECONDARY Benign prostatic hyperplasia with lower urinary tract symp [facility] December 26, 2024 08:57 PM SECONDARY Essential (primary) hypertension [facility] December 26, 2024 08:57 PM SECONDARY Gastro-esophageal reflux disease without esophagitis [facility] December 26, 2024 08:57 PM SECONDARY Hyperlipidemia, unspecified [facility] December 26, 2024 08:57 PM SECONDARY Male erectile dysfunction, unspecified [facility] December 26, 2024 08:57 PM SECONDARY Malignant neoplasm of prostate [facility] December 26, 2024 08:57 PM SECONDARY Other obstructive and reflux uropathy [facility] December 26, 2024 08:57 PM SECONDARY Type 2 diabetes mellitus with diabetic polyneuropathy [facility] December 26, 2024 08:57 PM SECONDARY Unspecified osteoarthritis, unspecified site [facility] Plan of Treatment: Future Appointments (+ 6 months) and Future Tests (+/- 45 days) The Plan of Treatment section includes future care activities for the patient from all [place] treatmentfacilities. This section includes future appointments and future orders which are active, pending or scheduled. Future Appointments This section includes appointments that were scheduled to occur 6 months from the date of the Encounter, up to a maximum of 20 appointments. The data comes from all [facility]. Appointment Date/Time Appointment Type Appointme nt Facility Name Feb 18, 2025 10:30 AM AMBULATORY - NONE [facility] Active, Pending, and Scheduled Orders This section includes a listing of several types of active, pending, and scheduled orders, including clinic medications orders, diagnostic test orders, procedure orders and consult orders; where the start date of the order is 45 days before the date of the Encounter or 45 days after the date of theEncounter. The data comes from all [facility]. Test Date/Time Test Type Test Details Facility Name December 23, 2024 12:00 AM Laboratory - Chemi stry Order URINALYSIS (STL-PB) URINE - CLEAN CATCH [facility] December 26, 2024 12:00 AM Laboratory - Chemi stry Order MICRAL/CREAT PROFILE (STL) URINE [facility] Lab Results: +/- 30 days of the encounter This section includes the Chemistry and Hematology Lab Results on record with [place] for the patient. Radiology Reports and Pathology Reports are provided separately, in subsequent sections. Lab Results This section contains the Chemistry/Hematology Results that were resulted 30 days before or 30 daysafter the date of the Encounter. Date/Time Source Result Type Result - Unit Interpretation Reference Range Specimen Type Comment December 23, 2024 11:15 AM [facility] HGA1C BLOOD Specimen Type: BLOOD No comment entered. Ordering Provider: APARNA NOGUEIRA Report Released Date/Time: December 23, 2024 11:01 AM Reporting Lab: [facility] [address] [place] [phone] Performing Lab: [facility] [address] [place] [phone] HGA1C 5.9 4.0-6.0 December 23, 2024 11:15 AM [facility] TSH (MA-PB) SERUM Specimen Type: SERUM No comment entered. Ordering Provider: APARNA NOGUEIRA Report Released Date/Time: December 23, 2024 11:01 AM Reporting Lab: [address] [phone] Performing Lab: [address] [place] [address] TSH 1.159 u[IU]/mL 0.47-5 December 23, 2024 11:15 AM [facility] VITAMIN D, 25-HYDROXY SERUM Specimen Type: SE RUM No comment entered. Ordering Provider: APARNA NOGUEIRA Report Released Date/Time: December 23, 2024 11:01 AM Reporting Lab: [address] [phone] Performing Lab: [address] [phone] VITAMIN D, 25-HYDROXY 81.6 ng/mL 30-96 December 23, 2024 11:15 AM [facility] LIPID PANEL (STL) PLASMA Specimen Type: PLASM A Comment: No hemolysis noted. Ordering Provider: APARNA NOGUEIRA Report Released Date/Time: December 23, 2024 11:01 AM Reporting Lab: [address] [phone] Performing Lab: [address] [phone] CHOLESTEROL 135 mg/dL 0-200 TRIGLYCERIDE 29 mg/dL 0-150 CALCULATED LDL 47 mg/dL HDL(New) 82 mg/dL >40 December 23, 2024 11:15 AM [facility] B12 SERUM Specimen Type: SERUM No comment entered. Ordering Provider: APARNA NOGUEIRA Report Released Date/Time: December 23, 2024 11:01 AM Reporting Lab: [facility] [address] [place] [phone] Performing Lab: [address] [phone] B12 646 pg/mL 213-816 December 23, 2024 11:15 AM [facility] COMPREHENSIVE METABOLIC PANEL PLASMA Specimen Type: PLASMA Comment: No hemolysis noted. Ordering Provider: APARNA NOGUEIRA Report Released Date/Time: December 23, 2024 11:01 AM Reporting Lab: [facility] [address] [place] [phone] Performing Lab: [facility] [address] [facility] [phone] CREATININE 1.22 mg/dL 0.7-1.3 UREA NITROGEN 15.4 mg/dL 9.0-25.0 GLUCOSE 98 mg/dL 72-99 SODIUM 133 meq/L L 136-145 POTASSIUM 4.8 meq/L 3.5-5 CHLORIDE 101 meq/L 98-107 CARBON DIOXIDE 22 meq/L 22-31 CALCIUM 9.4 mg/dL 8.4-10.4 PROTEIN 7.3 g/dL 6-8.6 ALBUMIN 4.6 g/dL 3.4-5 TOTAL BILIRUBIN 0.8 mg/dL 0.2-1.2 ALKALINE PHOSPHATASE 72 U/L 40-150 AST/SGOT 46 U/L H 5-34 ALT/SGPT 22 U/L 8-40 EGFR (CKD-EPI 2020) 60.7 >60 December 23, 2024 11:15 AM [facility] CBC BLOOD Specimen Type: BLOOD No comment entered. Ordering Provider: APARNA NOGUEIRA Report Released Date/Time: December 23, 2024 11:01 AM Reporting Lab: [facility] [address] [facility] [phone] Performing Lab: [facility] [address] [place] [phone] WBC 4.6 10*3/uL 3.6-11.2 RBC 3.92 10*6/uL L 4.10-5.70 HGB 12.3 g/dL L 13.1-16.8 HCT 36.6 L 38.2-48.4 MCV 93.4 fL 80.0-100.0 MCH 31.4 pg 27.0-34.0 MCHC 33.6 g/dL 33.0-36.0 PLT 221 10*3/uL 150-400 MPV 9.5 fL 7.5-11.2 RDW 12.6 11.8-15.1 LYMPHOCYTES, AUTO % 14 MONOCYTES, AUTO % 10 NEUTROPHILS, AUTO % 72 EOSINOPHILS, AUTO % 3 BASOPHILS, AUTO % 1 LYMPHOCYTES, ABSOLUTE 0.67 10*3/uL L 0.77- 4.50 MONOCYTES, ABSOLUTE 0.44 10*3/uL 0.19-0. 80 NEUTROPHILS, ABSOLUTE 3.35 10*3/uL 2.10- 8.00 EOSINOPHILS, ABSOLUTE 0.13 10*3/uL 0.00- 0.60 BASOPHILS, ABSOLUTE 0.03 10*3/uL 0.00-0. 20 December 23, 2024 10:19 AM [facility] GLUCOSE,BLOOD-poct (STL) BLOOD Specimen Type: BLOOD Comment: Test Performed by: [id number] Meter #: [id number] Ordering Provider: APARNA NOGUEIRA Report Released Date/Time: December 23, 2024 03:57 PM Reporting Lab: [facility] [address] [facility] [phone] Performing Lab: [facility] [address] [place] [address] GLUCOSE,BLOOD-poct (STL) 110 mg/dL H 72-99
[2025-02-08 08:13] LABS: Hematocrit 34.0 % (42.0-52.0); Hemoglobin 11.5 g/dL (14.0-18.0); Mean Corpuscular HGB Conc 33.8 g/dl (32-36); Mean Corpuscular Hemoglobin 31.4 pg (26-34); Mean Corpuscular Volume 92.9 fl (80-100); Platelet Count Result 185 k/mm3 (150-375); Red Blood Count 3.66 M/mm3 (4.6-6.20); White Blood Count 5.6 K/mm3 (4.5-10.0)
[2025-02-08 08:14] LABS: Add Urine Microscopic? NO; Appearance Urine Clear (Clear); Glucose Urine UA Negative (Negative); Leukocyte Esterase Ur Negative LEU/UL (Negative); Nitrate Urine Negative (Negative); Specific Grav Ur 1.008 (1.001-1.035)
[2025-02-08 09:38] LABS: Alanine Aminotransferase 26 U/L (6-50); Albumin Level 4.2 g/dL (3.5-5.1); Alkaline Phosphatase 92 U/L (38-126); Anion Gap 7 mmol/L (4-12); Aspartate Amino Transferase 30 U/L (17-59); Bilirubin,Total 0.6 mg/dL (0.2-1.3); Blood Urea Nitrogen 22 mg/dL (9-20); Calcium 9.7 mg/dL (8.4-10.2); Carbon Dioxide 26 mmol/L (22-30); Chloride 104 mmol/L (98-107); Cholesterol 152 mg/dL (0-200); Estimated Glomerular Filt Rate 54; Glucose 136 mg/dL (65-110); HDL Direct 74 mg/dL; Potassium 4.3 mmol/L (3.4-5.0); Sodium 137 mmol/L (137-145); Total Protein 7.0 g/dL (6.3-8.2); Triglycerides 73 mg/dL (<150)
[2025-02-08 10:10] LABS: Thyroid Stimulating Hormone 2.180 uIU/mL (0.465-4.680)
[2025-02-08 17:59] LABS: Hemoglobin A1C 6.0 % (<5.7)
== END 2025-02-08 07:48 | disposition home or self-care (01) ==
PROVIDERS: PCP Family Medicine; Visit Provider Family Medicine
DX: E78.00 Pure hypercholesterolemia, unspecified (principal); R73.01 Impaired fasting glucose; I10 Essential (primary) hypertension
CPT/HCPCS: 36415; 80053; 80061; 81003; 83036; 84443; 85027